=== PATIENT | male | born 1965 | race Two or more races ===

== ENCOUNTER 2017-11-20 09:16 | Emergency (ER) | payer MEDICAID ==
[~2017-11-20] VITALS: Ht 182.9 cm; Wt 68.8 kg
[2017-11-20 09:22] VITALS: BP 178/91
== END 2017-11-20 10:43 | disposition home or self-care (01) ==
LOC: ED 10:20
DX: S70.01XA Contusion of right hip, initial encounter (principal); S70.11XA Contusion of right thigh, initial encounter; E78.5 Hyperlipidemia, unspecified; E11.9 Type 2 diabetes mellitus without complications; I10 Essential (primary) hypertension; F32.9 Major depressive disorder, single episode, unspecified; Z79.899 Other long term (current) drug therapy; W19.XXXA Unspecified fall, initial encounter; Y93.01 Activity, walking, marching and hiking; Y99.8 Other external cause status; Y92.410 Unspecified street and highway as the place of occurrence of the external cause
CPT/HCPCS: 99284

== ENCOUNTER 2017-11-26 07:29 | Emergency (ER) | payer MEDICAID ==
[~2017-11-26] VITALS: Ht 188 cm; Wt 78.0 kg
[2017-11-26 07:34] VITALS: BP 112/67
== END 2017-11-26 08:56 | disposition home or self-care (01) ==
LOC: ED 08:50
DX: L01.01 Non-bullous impetigo (principal); F17.200 Nicotine dependence, unspecified, uncomplicated; E78.5 Hyperlipidemia, unspecified; I10 Essential (primary) hypertension; E11.9 Type 2 diabetes mellitus without complications
CPT/HCPCS: 99283

== ENCOUNTER 2017-12-23 07:00 | Emergency (ER) | payer MEDICAID ==
[~2017-12-23] VITALS: Ht 182.9 cm; Wt 78.0 kg
[2017-12-23 07:59] LABS: ALANINE AMINOTRANSFERASE 35 U/L (12-78); ALBUMIN 3.3 g/dL (3.4-5.0); ANION GAP 8 mmol/L (5-15); CALCIUM 8.5 mg/dL (8.5-10.1); CHLORIDE 104 mmol/L (98-107); CREATININE 0.57 mg/dL (0.7-1.3)
[2017-12-23 08:00] LABS: MEAN CORPUSCULAR HEMOGLOBIN 32.2 pg (27.5-34.5); MEAN CORPUSCULAR HGB CONC 34.1 g/dL (33.2-36.2); MEAN CORPUSCULAR VOLUME 94.2 fL (81-97); MEAN PLATELET VOLUME 8.4 fL (7.4-10.4); PLATELET COUNT 198 x10^3/uL (130-400); RED BLOOD COUNT 4.22 x10^6/uL (4.38-5.82)
[2017-12-23 08:01] LABS: ALKALINE PHOSPHATASE 99 U/L (45-117); BILIRUBIN,TOTAL 0.4 mg/dL (0.2-1.0); TOTAL PROTEIN 8.2 g/dL (6.4-8.2)
[2017-12-23 08:18] LABS: MD YES
[2017-12-23 08:20] LABS: ANISOCYTOSIS 1+; BAND#(MANUAL) 0.92 x10^3/uL; BANDS%(MANUAL) 8 % (0-7); LYMPH#(MANUAL) 0.35 x10^3/uL (1-3.4); LYMPHS% (MANUAL) 3 % (22-44); MONOS#(MANUAL) 0.23 x10^3/uL (0.3-2.7); MONOS% (MANUAL) 2 % (2-9); SEG#(MANUAL) 10.01 x10^3/uL (1.8-6.8); SEGS% (MANUAL) 87 % (42-75)
[2017-12-23 08:21] LABS: <PLATELET ESTIMATE> ADEQUATE; <PLT MORPHOLOGY> NORMAL PLT MORPH
[2017-12-23] MEDS ORDERED: IBUPROFEN 200 MG TABLET ONE (08:59)
[2017-12-23] MEDS ORDERED: ACETAMINOPHEN 500 MG TABLET ONE (08:59)
[2017-12-23] MEDS ORDERED: CEFTRIAXONE PMX 1GM/50ML 50 ML ONE (09:22)
[2017-12-23] MEDS ORDERED: CEFTRIAXONE PMX 1GM/50ML 50 ML IVPB ONE (09:30)
[2017-12-23] MEDS ORDERED: CEFTRIAXONE 1,000 MG in SODIUM CHLORIDE 0.9% 50 ML IVPB ONE (10:00)
[2017-12-23] MEDS ORDERED: SODIUM CHLORIDE 0.9% 1,000ML IVBOLUS ONE (10:00)
[2017-12-23] MEDS ORDERED: AZITHROMYCIN 500 MG in SODIUM CHLORIDE 0.9% 250 ML IVPB ONE (10:30)
[2017-12-23] MEDS ORDERED: SODIUM CHLORIDE FLUSH 10ML SYR IVF ONE (11:00)
[2017-12-23 12:04] VITALS: BP 169/53
== END 2017-12-23 12:54 | disposition home or self-care (01) ==
LOC: ED 07:47
DX: J15.9 Unspecified bacterial pneumonia (principal); R50.81 Fever presenting with conditions classified elsewhere
CPT/HCPCS: 36415; 71046; 80053; 83605; 84145; 85025; 87040; 93005; 96365; 96366; 96368; 99285; J0456; J0696; J7030; J7050

== ENCOUNTER 2018-03-20 04:06 | Emergency (ER) | payer MEDICAID ==
[~2018-03-20] VITALS: Ht 182.9 cm; Wt 75.0 kg
[2018-03-20] MEDS ORDERED: METFORMIN (04:19)
[2018-03-20] MEDS ORDERED: LISINOPRIL (04:19)
[2018-03-20] MEDS ORDERED: METOPROLOL (04:19)
[2018-03-20] MEDS ORDERED: INSULIN PEN (04:19)
[2018-03-20] MEDS ORDERED: ASPI-515 PO (04:19)
--- NOTE | 2018-03-20 04:20 | NUR ---
PT BS 76, CRACKERS AND ORANGE JUICE PROVIDED AND ERMD AWARE. PT RESTING COMFORTABLY ON GURNEY, VSS.
[2018-03-20 05:04] LABS: BASOPHILS # (AUTO) 0.05 x10^3/uL (0-0.1); BASOPHILS % (AUTO) 1 % (0-1); EOSINOPHILS # (AUTO) 0.01 x10^3/uL (0-0.4); EOSINOPHILS % (AUTO) 0 % (1-7); LYMPHOCYTES # (AUTO) 0.86 x10^3/uL (1-3.4); LYMPHOCYTES % (AUTO) 11 % (22-44); MD NO; MEAN CORPUSCULAR HEMOGLOBIN 31.8 pg (27.5-34.5); MEAN CORPUSCULAR HGB CONC 34.2 g/dL (33.2-36.2); MEAN CORPUSCULAR VOLUME 92.8 fL (81-97); MEAN PLATELET VOLUME 9.3 fL (7.4-10.4); MONOCYTES # (AUTO) 0.55 x10^3/uL (0.2-0.8); MONOCYTES % (AUTO) 7 % (2-9); NEUTROPHILS # (AUTO) 6.37 x10^3/uL (1.8-6.8); NEUTROPHILS % (AUTO) 81 % (42-75); PLATELET COUNT 185 x10^3/uL (130-400); RED BLOOD COUNT 4.82 x10^6/uL (4.38-5.82); RED CELL DISTRIBUTION WIDTH 12.5 % (9.4-14.8)
[2018-03-20 05:15] LABS: ALBUMIN 3.6 g/dL (3.4-5.0); ANION GAP 13 mmol/L (5-15); CHLORIDE 104 mmol/L (98-107)
[2018-03-20 05:16] LABS: CREATININE 0.78 mg/dL (0.7-1.3)
[2018-03-20] MEDS ORDERED: POTASSIUM CHLORIDE 20 MEQ TAB.ER.PRT ONE (05:55)
[2018-03-20] MEDS ORDERED: POTASSIUM CHLORIDE 20 MEQ TAB.ER.PRT PO ONE (06:00)
[2018-03-20 06:08] VITALS: BP 139/91
== END 2018-03-20 06:10 | disposition home or self-care (01) ==
LOC: ED 05:38
DX: E11.649 Type 2 diabetes mellitus with hypoglycemia without coma (principal); Z79.4 Long term (current) use of insulin; E87.6 Hypokalemia; E78.5 Hyperlipidemia, unspecified; I10 Essential (primary) hypertension; Z95.1 Presence of aortocoronary bypass graft
CPT/HCPCS: 36415; 80048; 82040; 82962; 85025; 93005; 99284

== ENCOUNTER 2018-03-30 19:55 | Emergency (ER) | payer MEDICAID ==
[~2018-03-30] VITALS: Ht 182.9 cm; Wt 75.0 kg
[~2018-03-30 19:55] MED LIST: ASPI-515 PO; INSULIN PEN; LISINOPRIL; METFORMIN; METOPROLOL
--- NOTE | 2018-03-30 20:30 | NUR ---
PT BETH CORONADO, PT AMBULATED TO ROOM WITH EMS STEADILY. PT IN HOSPITAL GOWN. PT ON VITALS MONITORS. PT CALM AND COOPERATIVE AT THIS TIME. PT STATED HE WAS TRYING TO ORDER FOOD AT [facility] AND DIDN'T FEEL GOOD. CALLED EMS, WHEN FOUND OUT HIS SUGAR WAS HIGH, ASKED TO BE BROUGHT IN. BLOOD SUGAR TAKEN UPON ARRIVAL, PT BLOOD SUGAR 237. PT SEEN BY DANA SMITHILS UP. WILL CONTINUE TO MONITOR.
[2018-03-30 20:46] LABS: BASOPHILS # (AUTO) 0.03 x10^3/uL (0-0.1); BASOPHILS % (AUTO) 1 % (0-1); EOSINOPHILS # (AUTO) 0.07 x10^3/uL (0-0.4); EOSINOPHILS % (AUTO) 2 % (1-7); LYMPHOCYTES # (AUTO) 1.71 x10^3/uL (1-3.4); LYMPHOCYTES % (AUTO) 40 % (22-44); MD NO; MEAN CORPUSCULAR HEMOGLOBIN 31.8 pg (27.5-34.5); MEAN CORPUSCULAR HGB CONC 34.2 g/dL (33.2-36.2); MEAN PLATELET VOLUME 8.7 fL (7.4-10.4); MONOCYTES # (AUTO) 0.32 x10^3/uL (0.2-0.8); MONOCYTES % (AUTO) 7 % (2-9); NEUTROPHILS # (AUTO) 2.14 x10^3/uL (1.8-6.8); NEUTROPHILS % (AUTO) 50 % (42-75); PLATELET COUNT 210 x10^3/uL (130-400); RED BLOOD COUNT 4.62 x10^6/uL (4.38-5.82); RED CELL DISTRIBUTION WIDTH 13.3 % (9.4-14.8)
[2018-03-30 20:58] LABS: ALANINE AMINOTRANSFERASE 27 U/L (12-78); ALBUMIN 3.6 g/dL (3.4-5.0); ANION GAP 12 mmol/L (5-15); CALCIUM 8.4 mg/dL (8.5-10.1); CHLORIDE 109 mmol/L (98-107)
[2018-03-30 21:01] LABS: ALKALINE PHOSPHATASE 97 U/L (45-117); BILIRUBIN,TOTAL 0.2 mg/dL (0.2-1.0); CREATININE 0.72 mg/dL (0.7-1.3); TOTAL PROTEIN 7.8 g/dL (6.4-8.2)
--- NOTE | 2018-03-30 21:07 | NUR ---
PT LABS HAVE RESULTED. PT UP FOR RECHECK. PT RESTING CALMLY IN BED WITH EYES CLOSED. PT GIVEN URINAL TO VOID.
[2018-03-30 22:54] VITALS: BP 125/82
[2018-03-31] MEDS ORDERED: NALT50TA PO (12:15)
[2018-03-31] MEDS ORDERED: LISI40TA PO (12:15)
[2018-03-31] MEDS ORDERED: EMPA1TAB PO (12:15)
[2018-03-31] MEDS ORDERED: SERT100T32 PO (12:15)
[2018-03-31] MEDS ORDERED: GEMF600T8 PO (12:15)
[2018-03-31] MEDS ORDERED: METF1000 PO (12:15)
[2018-03-31] MEDS ORDERED: METO50TA82 PO (12:15)
[2018-03-31] MEDS ORDERED: INSU100V13 SC (12:17)
== END 2018-03-30 22:55 | disposition home or self-care (01) ==
LOC: ED 21:30
DX: F10.129 Alcohol abuse with intoxication, unspecified (principal); E11.65 Type 2 diabetes mellitus with hyperglycemia; E78.00 Pure hypercholesterolemia, unspecified; I10 Essential (primary) hypertension; Y90.9 Presence of alcohol in blood, level not specified
CPT/HCPCS: 36415; 80053; 82962; 85025; 99283

== ENCOUNTER 2018-05-26 07:34 | Emergency (ER) | payer MEDICAID ==
[~2018-05-26] VITALS: Ht 182.9 cm; Wt 77.5 kg
[~2018-05-26 07:34] MED LIST changes: +EMPA1TAB PO; +GEMF600T8 PO; +INSU100V13 SC; +LISI40TA PO; +METF1000 PO; +METO50TA82 PO; +NALT50TA PO; +SERT100T32 PO
--- NOTE | 2018-05-26 08:09 | NUR ---
VEGETABLE FARM MANAGER: PT TO ROOM FROM LOBBY VIA WHEELCHAIR
[2018-05-26] MEDS ORDERED: SERT100T PO (08:26)
[2018-05-26] MEDS ORDERED: KETOROLAC 30 MG/1 ML ONE (08:52)
[2018-05-26] MEDS ORDERED: HYDROmorphone 1 MG/ML, 1ML ONE (08:53)
[2018-05-26] MEDS ORDERED: SODIUM CHLORIDE FLUSH 10ML SYR IVF ONE (09:00)
[2018-05-26] MEDS ORDERED: HYDROmorphone 2 MG/ML, 1ML IVPush PRN (09:00)
[2018-05-26] MEDS ORDERED: KETOROLAC 30 MG/1 ML IVPush ONE (09:00)
[2018-05-26 09:32] LABS: BASOPHILS # (AUTO) 0.01 x10^3/uL (0-0.1); BASOPHILS % (AUTO) 0 % (0-1); EOSINOPHILS # (AUTO) 0.05 x10^3/uL (0-0.4); EOSINOPHILS % (AUTO) 0 % (1-7); LYMPHOCYTES # (AUTO) 0.79 x10^3/uL (1-3.4); LYMPHOCYTES % (AUTO) 6 % (22-44); MD NO; MEAN CORPUSCULAR HEMOGLOBIN 29.8 pg (27.5-34.5); MEAN CORPUSCULAR HGB CONC 34.1 g/dL (33.2-36.2); MEAN CORPUSCULAR VOLUME 87.6 fL (81-97); MEAN PLATELET VOLUME 8.8 fL (7.4-10.4); MONOCYTES % (AUTO) 6 % (2-9); NEUTROPHILS # (AUTO) 12.08 x10^3/uL (1.8-6.8); NEUTROPHILS % (AUTO) 88 % (42-75); PLATELET COUNT 212 x10^3/uL (130-400); RED CELL DISTRIBUTION WIDTH 12.3 % (9.4-14.8)
[2018-05-26 09:41] LABS: ALBUMIN 3.8 g/dL (3.4-5.0); ANION GAP 7 mmol/L (5-15); CALCIUM 9.2 mg/dL (8.5-10.1); CHLORIDE 90 mmol/L (98-107); CREATININE 0.68 mg/dL (0.7-1.3)
[2018-05-26 09:46] LABS: ALANINE AMINOTRANSFERASE 22 U/L (12-78); ALKALINE PHOSPHATASE 108 U/L (45-117); BILIRUBIN,TOTAL 0.8 mg/dL (0.2-1.0); TOTAL PROTEIN 8.4 g/dL (6.4-8.2)
[2018-05-26 09:51] VITALS: BP 146/81
== END 2018-05-26 11:01 | disposition home or self-care (01) ==
LOC: ED 08:55
DX: M54.42 Lumbago with sciatica, left side (principal); J34.0 Abscess, furuncle and carbuncle of nose; E11.65 Type 2 diabetes mellitus with hyperglycemia; I10 Essential (primary) hypertension; F32.9 Major depressive disorder, single episode, unspecified; E78.5 Hyperlipidemia, unspecified; Z87.01 Personal history of pneumonia (recurrent)
CPT/HCPCS: 36415; 72072; 72110; 80053; 85025; 96374; 96375; 99284; J1170; J1885

== ENCOUNTER 2018-05-27 14:05 | Inpatient (IN) | payer MEDICAID ==
[~2018-05-27] VITALS: Ht 182.9 cm; Wt 68.0 kg
[~2018-05-27 14:05] MED LIST changes: +SERT100T PO
[2018-05-27 15:22] LABS: BASOPHILS % (AUTO) 0 % (0-1); EOSINOPHILS # (AUTO) 0.08 x10^3/uL (0-0.4); EOSINOPHILS % (AUTO) 1 % (1-7); LYMPHOCYTES # (AUTO) 1.02 x10^3/uL (1-3.4); LYMPHOCYTES % (AUTO) 7 % (22-44); MD NO; MEAN CORPUSCULAR HEMOGLOBIN 30.5 pg (27.5-34.5); MEAN CORPUSCULAR HGB CONC 34.5 g/dL (33.2-36.2); MEAN CORPUSCULAR VOLUME 88.6 fL (81-97); MEAN PLATELET VOLUME 9.1 fL (7.4-10.4); MONOCYTES # (AUTO) 0.89 x10^3/uL (0.2-0.8); MONOCYTES % (AUTO) 6 % (2-9); NEUTROPHILS # (AUTO) 12.06 x10^3/uL (1.8-6.8); NEUTROPHILS % (AUTO) 86 % (42-75); PLATELET COUNT 215 x10^3/uL (130-400); RED CELL DISTRIBUTION WIDTH 12.3 % (9.4-14.8)
[2018-05-27 15:32] LABS: ALANINE AMINOTRANSFERASE 24 U/L (12-78); ANION GAP 10 mmol/L (5-15); CALCIUM 9.1 mg/dL (8.5-10.1); CHLORIDE 85 mmol/L (98-107); CREATININE 1.33 mg/dL (0.7-1.3)
[2018-05-27 15:34] LABS: ALKALINE PHOSPHATASE 117 U/L (45-117); BILIRUBIN,TOTAL 0.7 mg/dL (0.2-1.0); TOTAL PROTEIN 8.6 g/dL (6.4-8.2)
--- NOTE | 2018-05-27 16:57 | NUR ---
Present via triage for continued lower back as he was unable to fill pain med rx. Reports lumbar pain with radiation to right leg. Reports he has some back issue which you guys looked at yesterday." Motore/sensory intact. But movement cause extreme pain. Denies bowel/bladder abnormality. Afebrile/VSS. Ddes has enlarged/reddened nose. Looks infected. Patient unsure of why. placd on monitor. Infectious lab/med orders noted. Will complete immediately
[2018-05-27] MEDS ORDERED: MORPHINE SULFATE 4 MG/ML, 1ML IVPush PRN (17:00)
[2018-05-27] MEDS ORDERED: SODIUM CHLORIDE 0.9% 1,000ML IVBOLUS ONE (17:00)
[2018-05-27] MEDS ORDERED: AMPICILLIN/SULBACTAM 3 GM in SODIUM CHLORIDE 0.9% 100 ML IV ONE (17:00)
[2018-05-27] MEDS ORDERED: SODIUM CHLORIDE FLUSH 10ML SYR IVF ONE (17:00)
[2018-05-27] MEDS ORDERED: ONDANSETRON 2MG/ML, 2ML IVPush ONE (17:00)
--- NOTE | 2018-05-27 17:08 | NUR ---
lab at bedside obtaining full set of labs including cultures
--- NOTE | 2018-05-27 17:17 | NUR ---
THROUGHPUT TASK RN: PT HAS MEDICAID SILVERSUMMIT INSURANCE. SPOKE W/ MANUEL AT [facility] WHO DECLINED TRANSFER. SPOKE W/ ABBEY FROM [facility] WHO DECLINED TRANSFER.
[2018-05-27] MEDS ORDERED: ONDANSETRON 2MG/ML, 2ML ONE (17:38)
[2018-05-27] MEDS ORDERED: MORPHINE SULFATE 4 MG/ML, 1ML ONE (17:39)
--- NOTE | 2018-05-27 17:40 | NUR ---
Able to ambulate 20 feet to restroom independently. Reports both legs with scaitica now
--- NOTE | 2018-05-27 18:03 | NUR ---
TO CT SCAN
--- NOTE | 2018-05-27 19:10 | NUR ---
PATIENT REPORTS CONTINUED PAIN RELIEF AFTER MORPHINE ADMIN (04/17), DENIES OTHER COMPLAINTS. RESTING IN BED WITH CALL YAN IN HAND. VSS. UPDATED ON ESTIMATED POC ( TO BE ADMITTED SHORTLY)
[2018-05-27 19:25] VITALS: BP 109/64
[2018-05-27] MEDS ORDERED: GLUCAGON 1 MG IM PRN (19:30)
[2018-05-27] MEDS ORDERED: DEXTROSE 50%, 50ML SYRINGE IVPush PRN (19:30)
[2018-05-27] MEDS ORDERED: DEXTROSE 4 GM TAB.CHEW PO PRN (19:30)
[2018-05-27] MEDS ORDERED: hydrALAzine 20 MG/ML, 1ML IVPush PRN (19:30)
[2018-05-27 19:40] LABS: HEMOGLOBIN A1C 7.7 % (4.2-6.3)
[2018-05-27] MEDS: METOPROLOL TARTRATE 50 MG TABLET PO SCH (20:08)
[2018-05-27] MEDS: SODIUM CHLORIDE FLUSH 10ML SYR IVF SCH (20:09)
[2018-05-27] MEDS: SODIUM CHLORIDE 0.9% 1,000 ML IV SCH (20:09)
[2018-05-27 20:30] LABS: AMPHETAMINE SCREEN, URINE Negative (Negative); BARBITURATE SCREEN, URINE Negative (Negative); BENZODIAZEPINE SCREEN, URINE Negative (Negative); CANNABINOID SCREEN, URINE Negative (Negative); COCAINE SCREEN, URINE Negative (Negative); METHADONE SCREEN, URINE Negative (Negative); OPIATE SCREEN, URINE Positive (Negative)
[2018-05-27] MEDS ORDERED: THIAMINE 200 MG in DEXTROSE 5% 50 ML IVPB ONE (20:30)
[2018-05-27] MEDS ORDERED: FOLIC ACID 5 MG/ML IM ONE (20:30)
[2018-05-27] MEDS ORDERED: INSULIN GLARGINE 100 UNITS/ML, PEN SQ-INSULIN SCH (21:00)
[2018-05-27] MEDS ORDERED: FOLIC ACID 1 MG TABLET PO ONE ×2 (21:00→23:30)
[2018-05-27] MEDS: INSULIN LISPRO 100 UNITS/ML, PEN SQ-INSULIN SCH (21:04)
[2018-05-27] MEDS ORDERED: OMNIPAQUE 350 MG/ML, 100ML BOTTLE ONE (22:51)
[2018-05-27] MEDS: MULTIVITAMINS/MINERALS TABLET PO SCH (23:20)
[2018-05-27] MEDS ORDERED: THIAMINE 100MG TABLET PO ONE (23:30)
[2018-05-28] MEDS: AMPICILLIN/SULBACTAM 3 GM in SODIUM CHLORIDE 0.9% 100 ML IV SCH ×4 (00:22→20:36)
[2018-05-28] MEDS: SODIUM CHLORIDE 0.9% 1,000 ML IV SCH ×2 (00:23→14:10)
[2018-05-28 01:30] VITALS: BP 128/72
[2018-05-28 06:43] LABS: BASOPHILS % (AUTO) 0 % (0-1); EOSINOPHILS # (AUTO) 0.07 x10^3/uL (0-0.4); EOSINOPHILS % (AUTO) 1 % (1-7); LYMPHOCYTES # (AUTO) 0.83 x10^3/uL (1-3.4); LYMPHOCYTES % (AUTO) 6 % (22-44); MD NO; MEAN CORPUSCULAR HEMOGLOBIN 30.8 pg (27.5-34.5); MEAN CORPUSCULAR HGB CONC 35.3 g/dL (33.2-36.2); MEAN CORPUSCULAR VOLUME 87.3 fL (81-97); MEAN PLATELET VOLUME 8.8 fL (7.4-10.4); MONOCYTES # (AUTO) 0.96 x10^3/uL (0.2-0.8); MONOCYTES % (AUTO) 7 % (2-9); NEUTROPHILS % (AUTO) 87 % (42-75); PLATELET COUNT 211 x10^3/uL (130-400); RED BLOOD COUNT 4.09 x10^6/uL (4.38-5.82); RED CELL DISTRIBUTION WIDTH 12.4 % (9.4-14.8)
[2018-05-28 06:56] LABS: ANION GAP 8 mmol/L (5-15); CALCIUM 8.2 mg/dL (8.5-10.1); CHLORIDE 95 mmol/L (98-107); CREATININE 0.55 mg/dL (0.7-1.3)
[2018-05-28] MEDS: INSULIN LISPRO 100 UNITS/ML, PEN SQ-INSULIN SCH ×7 (07:00→21:00)
[2018-05-28 07:12] VITALS: BP 129/62
[2018-05-28] MEDS ORDERED: DEXTROSE 50%, 50ML SYRINGE IVPush PRN (08:00)
[2018-05-28] MEDS ORDERED: GLUCAGON 1 MG IM PRN (08:00)
[2018-05-28] MEDS ORDERED: POTASSIUM CHLORIDE 10% 40 MEQ/30 ML UDC PO ONE (08:00)
[2018-05-28] MEDS ORDERED: DEXTROSE 4 GM TAB.CHEW PO PRN (08:00)
[2018-05-28] MEDS: LISINOPRIL 20 MG TABLET PO SCH (09:19)
[2018-05-28] MEDS: ASPIRIN 81 MG TABLET EC PO SCH (09:19)
[2018-05-28] MEDS: MULTIVITAMINS/MINERALS TABLET PO SCH (09:19)
[2018-05-28] MEDS: METOPROLOL TARTRATE 50 MG TABLET PO SCH ×2 (09:20→20:38)
[2018-05-28] MEDS: SODIUM CHLORIDE FLUSH 10ML SYR IVF SCH ×4 (09:20→21:00)
[2018-05-28] MEDS ORDERED: VANCOMYCIN PER PHARMACY MC PRN (10:00)
[2018-05-28] MEDS ORDERED: POTASSIUM CHLORIDE 20 MEQ TAB.ER.PRT ONE (10:27)
[2018-05-28] MEDS ORDERED: PHARMACOKINETIC MONITORING MC PRN (10:30)
[2018-05-28] MEDS ORDERED: PHARMACOKINETIC CONSULTATION MC ONE (10:30)
[2018-05-28] MEDS: VANCOMYCIN 1,400 MG in SODIUM CHLORIDE 0.9% 250 ML IV SCH ×2 (11:49→23:37)
[2018-05-28 15:11] VITALS: BP 127/75
[2018-05-28 20:10] VITALS: BP 136/70
[2018-05-28] MEDS: INSULIN GLARGINE 100 UNITS/ML, PEN SQ-INSULIN SCH (23:37)
[2018-05-29 01:44] VITALS: BP 125/71
[2018-05-29] MEDS: AMPICILLIN/SULBACTAM 3 GM in SODIUM CHLORIDE 0.9% 100 ML IV SCH ×2 (02:09→08:57)
[2018-05-29] MEDS: SODIUM CHLORIDE 0.9% 1,000 ML IV SCH (02:09)
[2018-05-29 05:56] LABS: BASOPHILS # (AUTO) 0.02 x10^3/uL (0-0.1); BASOPHILS % (AUTO) 0 % (0-1); EOSINOPHILS # (AUTO) 0.08 x10^3/uL (0-0.4); EOSINOPHILS % (AUTO) 1 % (1-7); LYMPHOCYTES # (AUTO) 1.23 x10^3/uL (1-3.4); LYMPHOCYTES % (AUTO) 10 % (22-44); MD NO; MEAN CORPUSCULAR HEMOGLOBIN 30.2 pg (27.5-34.5); MEAN CORPUSCULAR VOLUME 86.4 fL (81-97); MEAN PLATELET VOLUME 8.7 fL (7.4-10.4); MONOCYTES % (AUTO) 8 % (2-9); NEUTROPHILS # (AUTO) 9.94 x10^3/uL (1.8-6.8); NEUTROPHILS % (AUTO) 81 % (42-75); PLATELET COUNT 193 x10^3/uL (130-400); RED BLOOD COUNT 3.91 x10^6/uL (4.38-5.82)
[2018-05-29 06:14] LABS: ANION GAP 6 mmol/L (5-15); CALCIUM 7.9 mg/dL (8.5-10.1); CHLORIDE 100 mmol/L (98-107)
[2018-05-29 06:15] LABS: CREATININE 0.36 mg/dL (0.7-1.3)
[2018-05-29] MEDS: INSULIN LISPRO 100 UNITS/ML, PEN SQ-INSULIN SCH ×5 (07:00→21:00)
[2018-05-29] MEDS ORDERED: POTASSIUM CHLORIDE 20 MEQ TAB.ER.PRT PO ONE (07:30)
[2018-05-29 08:21] VITALS: BP 145/81
[2018-05-29] MEDS: MULTIVITAMINS/MINERALS TABLET PO SCH (08:57)
[2018-05-29] MEDS: METOPROLOL TARTRATE 50 MG TABLET PO SCH ×2 (08:58→22:06)
[2018-05-29] MEDS: ASPIRIN 81 MG TABLET EC PO SCH (08:58)
[2018-05-29] MEDS: LISINOPRIL 20 MG TABLET PO SCH (08:58)
[2018-05-29] MEDS: SODIUM CHLORIDE FLUSH 10ML SYR IVF SCH ×4 (09:00→22:07)
[2018-05-29] MEDS ORDERED: MAGNESIUM SULFATE PMX 2GM/50ML 50 ML IV ONE (11:00)
[2018-05-29 12:56] VITALS: BP 128/70
[2018-05-29] MEDS: VANCOMYCIN 1,400 MG in SODIUM CHLORIDE 0.9% 250 ML IV SCH (13:29)
[2018-05-29] MEDS: ENOXAPARIN 40 MG/0.4 ML SQ SCH (17:03)
[2018-05-29] MEDS: CEFAZOLIN 2,000 MG in SODIUM CHLORIDE 0.9% 50 ML IV SCH (17:04)
[2018-05-29] MEDS: POLYETHYLENE GLYCOL 17 GM PACKET PO SCH (17:04)
[2018-05-29 19:10] VITALS: BP 139/86
[2018-05-29] MEDS: INSULIN GLARGINE 100 UNITS/ML, PEN SQ-INSULIN SCH (22:06)
[2018-05-30] MEDS: CEFAZOLIN 2,000 MG in SODIUM CHLORIDE 0.9% 50 ML IV SCH ×3 (00:12→18:21)
[2018-05-30 01:00] LABS: HCT (SEDRATE) 36.2 % (39.2-51.8)
[2018-05-30 01:07] VITALS: BP 146/85
[2018-05-30] MEDS ORDERED: VANCOMYCIN 1,400 MG in SODIUM CHLORIDE 0.9% 250 ML IV SCH (01:30)
[2018-05-30] MEDS: INSULIN LISPRO 100 UNITS/ML, PEN SQ-INSULIN SCH ×4 (07:00→22:09)
[2018-05-30 07:19] VITALS: BP 115/75
[2018-05-30] MEDS: SODIUM CHLORIDE FLUSH 10ML SYR IVF SCH ×4 (09:09→22:09)
[2018-05-30] MEDS: LISINOPRIL 20 MG TABLET PO SCH (09:10)
[2018-05-30] MEDS: MULTIVITAMINS/MINERALS TABLET PO SCH (09:10)
[2018-05-30] MEDS: ASPIRIN 81 MG TABLET EC PO SCH (09:10)
[2018-05-30] MEDS: METOPROLOL TARTRATE 50 MG TABLET PO SCH ×2 (09:10→22:09)
[2018-05-30] MEDS: POLYETHYLENE GLYCOL 17 GM PACKET PO SCH (09:11)
[2018-05-30 12:41] VITALS: BP 116/91
[2018-05-30] MEDS ORDERED: SODIUM CHLORIDE NASAL SPRAY 45ML BOTTLE NAS PRN (13:30)
[2018-05-30] MEDS: ENOXAPARIN 40 MG/0.4 ML SQ SCH (18:21)
[2018-05-30 19:17] VITALS: BP 143/89
[2018-05-30] MEDS: INSULIN GLARGINE 100 UNITS/ML, PEN SQ-INSULIN SCH (22:10)
[2018-05-31 01:17] VITALS: BP 140/86
[2018-05-31] MEDS: CEFAZOLIN 2,000 MG in SODIUM CHLORIDE 0.9% 50 ML IV SCH ×3 (02:04→17:43)
[2018-05-31 07:00] VITALS: BP 150/91
[2018-05-31] MEDS: INSULIN LISPRO 100 UNITS/ML, PEN SQ-INSULIN SCH ×4 (07:00→20:35)
[2018-05-31] MEDS: SODIUM CHLORIDE FLUSH 10ML SYR IVF SCH ×4 (09:00→20:43)
[2018-05-31 10:07] VITALS: BP 134/80
[2018-05-31] MEDS: MULTIVITAMINS/MINERALS TABLET PO SCH (10:08)
[2018-05-31] MEDS: LISINOPRIL 20 MG TABLET PO SCH (10:08)
[2018-05-31] MEDS: METOPROLOL TARTRATE 50 MG TABLET PO SCH ×2 (10:08→20:34)
[2018-05-31] MEDS: ASPIRIN 81 MG TABLET EC PO SCH (10:09)
[2018-05-31] MEDS: POLYETHYLENE GLYCOL 17 GM PACKET PO SCH (10:09)
[2018-05-31 12:25] VITALS: BP 148/88
[2018-05-31 12:30] LABS: MEAN CORPUSCULAR HEMOGLOBIN 30.3 pg (27.5-34.5); MEAN CORPUSCULAR HGB CONC 34.4 g/dL (33.2-36.2); MEAN CORPUSCULAR VOLUME 87.9 fL (81-97); MEAN PLATELET VOLUME 9.2 fL (7.4-10.4); PLATELET COUNT 329 x10^3/uL (130-400); RED BLOOD COUNT 4.62 x10^6/uL (4.38-5.82); RED CELL DISTRIBUTION WIDTH 12.5 % (9.4-14.8)
[2018-05-31 13:04] LABS: BASOPHILS # (AUTO) 0.08 x10^3/uL (0-0.1); BASOPHILS % (AUTO) 1 % (0-1); EOSINOPHILS # (AUTO) 0.16 x10^3/uL (0-0.4); EOSINOPHILS % (AUTO) 1 % (1-7); LYMPHOCYTES % (AUTO) 11 % (22-44); MD SCAN; MONOCYTES # (AUTO) 0.64 x10^3/uL (0.2-0.8); MONOCYTES % (AUTO) 5 % (2-9); NEUTROPHILS # (AUTO) 11.41 x10^3/uL (1.8-6.8); NEUTROPHILS % (AUTO) 83 % (42-75)
[2018-05-31] MEDS: ENOXAPARIN 40 MG/0.4 ML SQ SCH (17:00)
[2018-05-31 18:57] VITALS: BP 134/76
[2018-05-31] MEDS: INSULIN GLARGINE 100 UNITS/ML, PEN SQ-INSULIN SCH (20:36)
[2018-06-01 01:43] VITALS: BP 138/86
[2018-06-01] MEDS: CEFAZOLIN 2,000 MG in SODIUM CHLORIDE 0.9% 50 ML IV SCH ×2 (02:22→07:58)
[2018-06-01] MEDS: INSULIN LISPRO 100 UNITS/ML, PEN SQ-INSULIN SCH ×4 (07:00→21:10)
[2018-06-01] MEDS: SODIUM CHLORIDE FLUSH 10ML SYR IVF SCH ×4 (07:33→21:08)
[2018-06-01 07:35] VITALS: BP 138/89
[2018-06-01] MEDS: METOPROLOL TARTRATE 50 MG TABLET PO SCH ×2 (07:58→21:08)
[2018-06-01] MEDS: LISINOPRIL 20 MG TABLET PO SCH (07:59)
[2018-06-01] MEDS: MULTIVITAMINS/MINERALS TABLET PO SCH (07:59)
[2018-06-01] MEDS: POLYETHYLENE GLYCOL 17 GM PACKET PO SCH (07:59)
[2018-06-01] MEDS: ASPIRIN 81 MG TABLET EC PO SCH (07:59)
[2018-06-01] MEDS: AMPICILLIN/SULBACTAM 3 GM in SODIUM CHLORIDE 0.9% 100 ML IV SCH ×2 (14:55→21:07)
[2018-06-01 15:01] VITALS: BP 147/83
[2018-06-01] MEDS: ENOXAPARIN 40 MG/0.4 ML SQ SCH (16:57)
[2018-06-01 19:30] VITALS: BP 155/89
[2018-06-01] MEDS: INSULIN GLARGINE 100 UNITS/ML, PEN SQ-INSULIN SCH (21:10)
[2018-06-02 03:09] VITALS: BP 125/83
[2018-06-02] MEDS: AMPICILLIN/SULBACTAM 3 GM in SODIUM CHLORIDE 0.9% 100 ML IV SCH ×2 (03:15→07:54)
[2018-06-02 06:22] VITALS: BP 146/92
[2018-06-02] MEDS: INSULIN LISPRO 100 UNITS/ML, PEN SQ-INSULIN SCH ×4 (07:00→20:31)
[2018-06-02] MEDS: POLYETHYLENE GLYCOL 17 GM PACKET PO SCH (07:30)
[2018-06-02] MEDS: MULTIVITAMINS/MINERALS TABLET PO SCH (07:54)
[2018-06-02] MEDS: LISINOPRIL 20 MG TABLET PO SCH (07:55)
[2018-06-02] MEDS: METOPROLOL TARTRATE 50 MG TABLET PO SCH ×2 (07:55→20:31)
[2018-06-02] MEDS: ASPIRIN 81 MG TABLET EC PO SCH (07:55)
[2018-06-02] MEDS: SODIUM CHLORIDE FLUSH 10ML SYR IVF SCH ×4 (07:55→20:32)
[2018-06-02] MEDS: ACETAMINOPHEN 325 MG TABLET PO PRN (12:00)
[2018-06-02 14:34] VITALS: BP 139/86
[2018-06-02] MEDS: AMPICILLIN/SULBACTAM 3 GM in SODIUM CHLORIDE 0.9% 50 ML IV SCH ×2 (15:14→20:31)
[2018-06-02] MEDS: ENOXAPARIN 40 MG/0.4 ML SQ SCH (16:21)
[2018-06-02 18:51] VITALS: BP 135/87
[2018-06-02] MEDS: INSULIN GLARGINE 100 UNITS/ML, PEN SQ-INSULIN SCH (20:31)
[2018-06-03 01:11] VITALS: BP 154/98
[2018-06-03] MEDS: AMPICILLIN/SULBACTAM 3 GM in SODIUM CHLORIDE 0.9% 50 ML IV SCH ×4 (03:37→22:28)
[2018-06-03] MEDS: INSULIN LISPRO 100 UNITS/ML, PEN SQ-INSULIN SCH ×4 (07:00→21:00)
[2018-06-03] MEDS: SODIUM CHLORIDE FLUSH 10ML SYR IVF SCH ×4 (07:09→22:29)
[2018-06-03] MEDS: ASPIRIN 81 MG TABLET EC PO SCH (07:39)
[2018-06-03] MEDS: POLYETHYLENE GLYCOL 17 GM PACKET PO SCH (07:39)
[2018-06-03] MEDS: LISINOPRIL 20 MG TABLET PO SCH (07:40)
[2018-06-03] MEDS: MULTIVITAMINS/MINERALS TABLET PO SCH (07:40)
[2018-06-03 07:56] VITALS: BP 149/98
[2018-06-03] MEDS: METOPROLOL TARTRATE 50 MG TABLET PO SCH ×2 (08:00→22:29)
[2018-06-03] MEDS ORDERED: PROPOFOL 10 MG/ML, 20ML ONE (09:47)
[2018-06-03] MEDS ORDERED: ONDANSETRON 2MG/ML, 2ML ONE (09:47)
[2018-06-03] MEDS: MORPHINE SULFATE 4 MG/ML, 1ML IVPush PRN ×2 (09:48→14:59)
[2018-06-03 13:44] VITALS: BP 130/94
[2018-06-03] MEDS ORDERED: MORPHINE SULFATE 4 MG/ML, 1ML IVPush PRN (14:30)
[2018-06-03] MEDS: ENOXAPARIN 40 MG/0.4 ML SQ SCH (15:57)
[2018-06-03] MEDS ORDERED: FENTANYL PF 100 MCG/2ML ONE ×2 (19:24→20:14)
[2018-06-03] MEDS ORDERED: OXYcodone 5 MG/5 ML ORAL.SOL UDC PO PRN (19:30)
[2018-06-03] MEDS ORDERED: HALOPERIDOL 5 MG/ML IV PRN (19:30)
[2018-06-03] MEDS ORDERED: LABETALOL 5MG/ML, 20ML IV PRN (19:30)
[2018-06-03] MEDS ORDERED: PROCHLORPERAZINE 5 MG/ML, 2ML IV PRN (19:30)
[2018-06-03] MEDS ORDERED: METOPROLOL 1 MG/ML, 5ML IV PRN (19:30)
[2018-06-03] MEDS ORDERED: HYDROmorphone 2 MG/ML, 1ML IVPush PRN (19:30)
[2018-06-03] MEDS ORDERED: DIPHENHYDRAMINE 50 MG/ML, 1ML IVPush PRN (19:30)
[2018-06-03] MEDS ORDERED: PROMETHAZINE 25 MG/ML, 1ML IV PRN (19:30)
[2018-06-03] MEDS ORDERED: FENTANYL PF 100 MCG/2ML IV PRN (19:30)
[2018-06-03] MEDS ORDERED: hydrALAzine 20 MG/ML, 1ML IV PRN (19:30)
[2018-06-03] MEDS ORDERED: OXYcodone 5 MG/5 ML ORAL.SOL UDC ONE ×2 (20:12→20:14)
[2018-06-03 20:43] VITALS: BP 163/93
[2018-06-03] MEDS: INSULIN GLARGINE 100 UNITS/ML, PEN SQ-INSULIN SCH (22:30)
[2018-06-04 01:14] VITALS: BP 152/88
[2018-06-04] MEDS: AMPICILLIN/SULBACTAM 3 GM in SODIUM CHLORIDE 0.9% 50 ML IV SCH ×4 (03:13→20:52)
[2018-06-04 05:15] LABS: CREATININE 0.69 mg/dL (0.7-1.3)
[2018-06-04] MEDS: INSULIN LISPRO 100 UNITS/ML, PEN SQ-INSULIN SCH ×4 (07:00→21:00)
[2018-06-04 07:10] LABS: ALBUMIN 3.2 g/dL (3.4-5.0); ANION GAP 8 mmol/L (5-15); CALCIUM 9.2 mg/dL (8.5-10.1); CHLORIDE 101 mmol/L (98-107); CREATININE 0.75 mg/dL (0.7-1.3)
[2018-06-04 07:38] LABS: BASOPHILS # (AUTO) 0.09 x10^3/uL (0-0.1); BASOPHILS % (AUTO) 1 % (0-1); EOSINOPHILS # (AUTO) 0.13 x10^3/uL (0-0.4); EOSINOPHILS % (AUTO) 1 % (1-7); LYMPHOCYTES # (AUTO) 1.47 x10^3/uL (1-3.4); LYMPHOCYTES % (AUTO) 13 % (22-44); MD NO; MEAN CORPUSCULAR HEMOGLOBIN 29.9 pg (27.5-34.5); MEAN PLATELET VOLUME 8.9 fL (7.4-10.4); MONOCYTES # (AUTO) 0.48 x10^3/uL (0.2-0.8); MONOCYTES % (AUTO) 4 % (2-9); NEUTROPHILS # (AUTO) 9.15 x10^3/uL (1.8-6.8); NEUTROPHILS % (AUTO) 81 % (42-75); PLATELET COUNT 411 x10^3/uL (130-400); RED BLOOD COUNT 4.54 x10^6/uL (4.38-5.82); RED CELL DISTRIBUTION WIDTH 12.5 % (9.4-14.8)
[2018-06-04] MEDS: ASPIRIN 81 MG TABLET EC PO SCH (08:06)
[2018-06-04] MEDS: METOPROLOL TARTRATE 50 MG TABLET PO SCH ×2 (08:06→20:55)
[2018-06-04] MEDS: LISINOPRIL 20 MG TABLET PO SCH (08:07)
[2018-06-04] MEDS: POLYETHYLENE GLYCOL 17 GM PACKET PO SCH (08:07)
[2018-06-04] MEDS: MULTIVITAMINS/MINERALS TABLET PO SCH (08:07)
[2018-06-04] MEDS: SODIUM CHLORIDE FLUSH 10ML SYR IVF SCH ×2 (08:07→20:52)
[2018-06-04 08:42] VITALS: BP 157/81
[2018-06-04 14:33] VITALS: BP 174/84
[2018-06-04] MEDS: ENOXAPARIN 40 MG/0.4 ML SQ SCH (16:26)
[2018-06-04 20:52] VITALS: BP 162/92
[2018-06-04] MEDS: INSULIN GLARGINE 100 UNITS/ML, PEN SQ-INSULIN SCH (21:20)
[2018-06-05 03:45] VITALS: BP 143/84
[2018-06-05] MEDS: AMPICILLIN/SULBACTAM 3 GM in SODIUM CHLORIDE 0.9% 50 ML IV SCH (03:45)
[2018-06-05] MEDS: INSULIN LISPRO 100 UNITS/ML, PEN SQ-INSULIN SCH ×4 (07:00→21:32)
[2018-06-05 08:10] VITALS: BP 154/89
[2018-06-05] MEDS: MULTIVITAMINS/MINERALS TABLET PO SCH (08:14)
[2018-06-05] MEDS: METOPROLOL TARTRATE 50 MG TABLET PO SCH ×2 (08:14→21:31)
[2018-06-05] MEDS: POLYETHYLENE GLYCOL 17 GM PACKET PO SCH (08:14)
[2018-06-05] MEDS: ASPIRIN 81 MG TABLET EC PO SCH (08:14)
[2018-06-05] MEDS: SODIUM CHLORIDE FLUSH 10ML SYR IVF SCH ×2 (08:14→21:31)
[2018-06-05] MEDS: LISINOPRIL 20 MG TABLET PO SCH (08:14)
[2018-06-05] MEDS: CEFAZOLIN 2,000 MG in SODIUM CHLORIDE 0.9% 50 ML IV SCH ×3 (08:58→23:37)
[2018-06-05 13:34] VITALS: BP 144/84
[2018-06-05] MEDS: ENOXAPARIN 40 MG/0.4 ML SQ SCH (16:43)
[2018-06-05 19:35] VITALS: BP 159/80
[2018-06-05] MEDS: INSULIN GLARGINE 100 UNITS/ML, PEN SQ-INSULIN SCH (21:33)
[2018-06-05] MEDS: SERTRALINE 100MG TABLET PO SCH (22:06)
[2018-06-06 02:25] VITALS: BP 117/71
[2018-06-06 05:51] LABS: HCT (SEDRATE) 36.4 % (39.2-51.8)
[2018-06-06 06:45] VITALS: BP 123/81
[2018-06-06] MEDS: INSULIN LISPRO 100 UNITS/ML, PEN SQ-INSULIN SCH ×4 (07:00→21:00)
[2018-06-06] MEDS: CEFAZOLIN 2,000 MG in SODIUM CHLORIDE 0.9% 50 ML IV SCH ×3 (08:32→23:57)
[2018-06-06] MEDS: SODIUM CHLORIDE FLUSH 10ML SYR IVF SCH ×2 (08:32→21:05)
[2018-06-06] MEDS: MULTIVITAMINS/MINERALS TABLET PO SCH (08:34)
[2018-06-06] MEDS: SERTRALINE 100MG TABLET PO SCH (08:35)
[2018-06-06] MEDS: LISINOPRIL 20 MG TABLET PO SCH (08:35)
[2018-06-06] MEDS: METOPROLOL TARTRATE 50 MG TABLET PO SCH ×2 (08:35→21:05)
[2018-06-06] MEDS: POLYETHYLENE GLYCOL 17 GM PACKET PO SCH (08:35)
[2018-06-06] MEDS: ASPIRIN 81 MG TABLET EC PO SCH (08:35)
[2018-06-06 12:40] VITALS: BP 125/77
[2018-06-06] MEDS: ENOXAPARIN 40 MG/0.4 ML SQ SCH (17:12)
[2018-06-06 19:22] VITALS: BP 143/87
[2018-06-06] MEDS: INSULIN GLARGINE 100 UNITS/ML, PEN SQ-INSULIN SCH (21:00)
[2018-06-07 01:07] VITALS: BP 143/84
[2018-06-07] MEDS: INSULIN LISPRO 100 UNITS/ML, PEN SQ-INSULIN SCH ×4 (07:00→20:44)
[2018-06-07 07:25] VITALS: BP 135/78
[2018-06-07] MEDS: CEFAZOLIN 2,000 MG in SODIUM CHLORIDE 0.9% 50 ML IV SCH ×2 (08:11→16:28)
[2018-06-07] MEDS: SODIUM CHLORIDE FLUSH 10ML SYR IVF SCH ×2 (08:12→20:51)
[2018-06-07] MEDS: SERTRALINE 100MG TABLET PO SCH (08:14)
[2018-06-07] MEDS: MULTIVITAMINS/MINERALS TABLET PO SCH (08:15)
[2018-06-07] MEDS: METOPROLOL TARTRATE 50 MG TABLET PO SCH ×2 (08:15→20:53)
[2018-06-07] MEDS: ASPIRIN 81 MG TABLET EC PO SCH (08:15)
[2018-06-07] MEDS: LISINOPRIL 20 MG TABLET PO SCH (08:15)
[2018-06-07] MEDS: POLYETHYLENE GLYCOL 17 GM PACKET PO SCH (08:15)
[2018-06-07 14:35] VITALS: BP 135/80
[2018-06-07] MEDS: ENOXAPARIN 40 MG/0.4 ML SQ SCH (16:30)
[2018-06-07 19:20] VITALS: BP 134/75
[2018-06-07] MEDS: INSULIN GLARGINE 100 UNITS/ML, PEN SQ-INSULIN SCH (20:43)
[2018-06-07] MEDS: ACETAMINOPHEN 325 MG TABLET PO PRN (20:54)
[2018-06-08] MEDS: CEFAZOLIN 2,000 MG in SODIUM CHLORIDE 0.9% 50 ML IV SCH ×3 (00:01→16:40)
[2018-06-08 01:45] VITALS: BP 137/79
[2018-06-08 05:13] LABS: BASOPHILS # (AUTO) 0.04 x10^3/uL (0-0.1); BASOPHILS % (AUTO) 0 % (0-1); EOSINOPHILS # (AUTO) 0.08 x10^3/uL (0-0.4); EOSINOPHILS % (AUTO) 1 % (1-7); LYMPHOCYTES % (AUTO) 15 % (22-44); MD NO; MEAN CORPUSCULAR HEMOGLOBIN 30.2 pg (27.5-34.5); MEAN CORPUSCULAR HGB CONC 34.5 g/dL (33.2-36.2); MEAN CORPUSCULAR VOLUME 87.6 fL (81-97); MEAN PLATELET VOLUME 8.9 fL (7.4-10.4); MONOCYTES # (AUTO) 0.58 x10^3/uL (0.2-0.8); MONOCYTES % (AUTO) 7 % (2-9); NEUTROPHILS # (AUTO) 6.62 x10^3/uL (1.8-6.8); NEUTROPHILS % (AUTO) 77 % (42-75); PLATELET COUNT 341 x10^3/uL (130-400); RED CELL DISTRIBUTION WIDTH 12.6 % (9.4-14.8)
[2018-06-08 05:18] LABS: CHLORIDE 101 mmol/L (98-107)
[2018-06-08 05:25] LABS: ALANINE AMINOTRANSFERASE 14 U/L (12-78); ALKALINE PHOSPHATASE 91 U/L (45-117); ANION GAP 7 mmol/L (5-15); BILIRUBIN,TOTAL 0.5 mg/dL (0.2-1.0); CALCIUM 9.1 mg/dL (8.5-10.1); CREATININE 0.59 mg/dL (0.7-1.3); TOTAL PROTEIN 7.9 g/dL (6.4-8.2)
[2018-06-08 08:29] VITALS: BP 157/84
[2018-06-08] MEDS: SODIUM CHLORIDE FLUSH 10ML SYR IVF SCH ×2 (08:49→21:06)
[2018-06-08] MEDS: ASPIRIN 81 MG TABLET EC PO SCH (08:49)
[2018-06-08] MEDS: POLYETHYLENE GLYCOL 17 GM PACKET PO SCH (08:50)
[2018-06-08] MEDS: METOPROLOL TARTRATE 50 MG TABLET PO SCH ×2 (08:50→21:07)
[2018-06-08] MEDS: LISINOPRIL 20 MG TABLET PO SCH (08:50)
[2018-06-08] MEDS: SERTRALINE 100MG TABLET PO SCH (08:50)
[2018-06-08] MEDS: MULTIVITAMINS/MINERALS TABLET PO SCH (08:50)
[2018-06-08] MEDS: INSULIN LISPRO 100 UNITS/ML, PEN SQ-INSULIN SCH ×4 (08:52→21:00)
[2018-06-08] MEDS: MICONAZOLE CRM 2%, 15GM TP SCH ×2 (09:00→21:07)
[2018-06-08] MEDS ORDERED: FLUCONAZOLE 200 MG TABLET PO SCH (09:00)
[2018-06-08 12:58] VITALS: BP 114/88
[2018-06-08] MEDS: ENOXAPARIN 40 MG/0.4 ML SQ SCH (16:42)
[2018-06-08 18:40] VITALS: BP 164/85
[2018-06-08] MEDS ORDERED: INSULIN GLARGINE 100 UNITS/ML, PEN SQ-INSULIN SCH (21:00)
[2018-06-09] MEDS: CEFAZOLIN 2,000 MG in SODIUM CHLORIDE 0.9% 50 ML IV SCH ×2 (00:17→07:29)
[2018-06-09 00:18] VITALS: BP 99/59
[2018-06-09] MEDS: INSULIN LISPRO 100 UNITS/ML, PEN SQ-INSULIN SCH ×4 (07:00→21:50)
[2018-06-09 07:10] VITALS: BP 134/80
[2018-06-09] MEDS: ACETAMINOPHEN 325 MG TABLET PO PRN ×2 (07:36→16:16)
[2018-06-09] MEDS: LISINOPRIL 20 MG TABLET PO SCH (08:58)
[2018-06-09] MEDS: MULTIVITAMINS/MINERALS TABLET PO SCH (08:58)
[2018-06-09] MEDS: SERTRALINE 100MG TABLET PO SCH (08:59)
[2018-06-09] MEDS: ASPIRIN 81 MG TABLET EC PO SCH (08:59)
[2018-06-09] MEDS: METOPROLOL TARTRATE 50 MG TABLET PO SCH ×2 (09:00→21:48)
[2018-06-09] MEDS: POLYETHYLENE GLYCOL 17 GM PACKET PO SCH (09:00)
[2018-06-09] MEDS: SODIUM CHLORIDE FLUSH 10ML SYR IVF SCH ×2 (09:00→21:48)
[2018-06-09] MEDS: MICONAZOLE CRM 2%, 15GM TP SCH ×2 (11:22→21:52)
[2018-06-09] MEDS ORDERED: DAPTOMYCIN 420 MG in SODIUM CHLORIDE 0.9% 100 ML IVPB SCH (12:30)
[2018-06-09 12:56] VITALS: BP 124/74
[2018-06-09] MEDS: ENOXAPARIN 40 MG/0.4 ML SQ SCH (17:00)
[2018-06-09] MEDS ORDERED: INSULIN GLARGINE 100 UNITS/ML, PEN SQ-INSULIN SCH (21:00)
[2018-06-09 21:28] VITALS: BP 167/91
[2018-06-10 01:14] VITALS: BP 187/94
[2018-06-10] MEDS: INSULIN LISPRO 100 UNITS/ML, PEN SQ-INSULIN SCH ×3 (07:00→16:48)
[2018-06-10 07:22] VITALS: BP 151/81
[2018-06-10 08:55] VITALS: BP 164/96
[2018-06-10] MEDS: SODIUM CHLORIDE FLUSH 10ML SYR IVF SCH (08:58)
[2018-06-10] MEDS: METOPROLOL TARTRATE 50 MG TABLET PO SCH (09:01)
[2018-06-10] MEDS: ASPIRIN 81 MG TABLET EC PO SCH (09:01)
[2018-06-10] MEDS: POLYETHYLENE GLYCOL 17 GM PACKET PO SCH (09:01)
[2018-06-10] MEDS: SERTRALINE 100MG TABLET PO SCH (09:02)
[2018-06-10] MEDS: LISINOPRIL 20 MG TABLET PO SCH (09:02)
[2018-06-10] MEDS: MULTIVITAMINS/MINERALS TABLET PO SCH (09:02)
[2018-06-10] MEDS: MICONAZOLE CRM 2%, 15GM TP SCH (09:03)
[2018-06-10] MEDS: ACETAMINOPHEN 325 MG TABLET PO PRN (10:41)
[2018-06-10 12:30] VITALS: BP 131/73
[2018-06-10] MEDS ORDERED: CEFAZOLIN 2,000 MG in SODIUM CHLORIDE 0.9% 50 ML IV SCH (13:00)
[2018-06-10] MEDS ORDERED: MICO14CR TP (13:25)
[2018-06-10] MEDS ORDERED: ASPI81TA45 PO (13:25)
[2018-06-10] MEDS ORDERED: MULT-484 PO (13:25)
[2018-06-10] MEDS ORDERED: ENOX40SY4 SQ (13:25)
[2018-06-10] MEDS ORDERED: METO50TA82 PO (13:25)
[2018-06-10] MEDS ORDERED: ACET325T14 PO (13:25)
[2018-06-10] MEDS ORDERED: LISI-170 PO (13:25)
[2018-06-10] MEDS ORDERED: CLON0.1T22 PO (13:25)
[2018-06-10] MEDS ORDERED: SERT100T32 PO (13:25)
[2018-06-10] MEDS ORDERED: INSU100I13 SQ-INSULIN (13:25)
[2018-06-10] MEDS ORDERED: GABA-826 PO (13:25)
[2018-06-10] MEDS ORDERED: CEFA1VIA IV (13:52)
[2018-06-10] MEDS ORDERED: GABAPENTIN 100 MG CAPSULE PO SCH (16:00)
[2018-06-10] MEDS: ENOXAPARIN 40 MG/0.4 ML SQ SCH (16:52)
[2018-06-10] MEDS ORDERED: INSULIN GLARGINE 100 UNITS/ML, PEN SQ-INSULIN SCH (21:00)
== END 2018-06-10 17:47 | DRG 853 ==
LOC: ED 17:12 → EDIP 18:22 → 3NE 19:18
PROVIDERS: ADMIT Family Medicine; ATTEND Family Medicine
PROC: 0Y6N0Z9 Detachment at Left Foot, Partial 1st Ray, Open Approach (ICD-10-PCS; principal; 2018-06-03 13:00)
PROC: 02HV33Z Insertion of Infusion Device into Superior Vena Cava, Percutaneous Approach (ICD-10-PCS; 2018-06-07)
PROC: B5181ZA Fluoroscopy of Superior Vena Cava using Low Osmolar Contrast, Guidance (ICD-10-PCS; 2018-06-07)
PROC: B548ZZA Ultrasonography of Superior Vena Cava, Guidance (ICD-10-PCS; 2018-06-07)
DX: A41.9 Sepsis, unspecified organism (principal); N17.0 Acute kidney failure with tubular necrosis; L03.116 Cellulitis of left lower limb; E87.1 Hypo-osmolality and hyponatremia; E46 Unspecified protein-calorie malnutrition; L03.211 Cellulitis of face; M86.172 Other acute osteomyelitis, left ankle and foot; B37.49 Other urogenital candidiasis; E11.69 Type 2 diabetes mellitus with other specified complication; L03.032 Cellulitis of left toe; J34.0 Abscess, furuncle and carbuncle of nose; M54.42 Lumbago with sciatica, left side; E11.65 Type 2 diabetes mellitus with hyperglycemia; F32.9 Major depressive disorder, single episode, unspecified; M25.475 Effusion, left foot; F10.20 Alcohol dependence, uncomplicated; E11.649 Type 2 diabetes mellitus with hypoglycemia without coma; E78.00 Pure hypercholesterolemia, unspecified; E78.5 Hyperlipidemia, unspecified; E87.6 Hypokalemia; F17.210 Nicotine dependence, cigarettes, uncomplicated; G89.29 Other chronic pain; I10 Essential (primary) hypertension; I35.8 Other nonrheumatic aortic valve disorders; N47.2 Paraphimosis; N48.1 Balanitis; Z79.4 Long term (current) use of insulin; Z95.1 Presence of aortocoronary bypass graft; Z59.0 Homelessness; Z68.20 Body mass index [BMI] 20.0-20.9, adult; Z83.3 Family history of diabetes mellitus; Z89.411 Acquired absence of right great toe
CPT/HCPCS: 36415; 36573; 70487; 72148; 80048; 80053; 80069; 80202; 80307; 82550; 82565; 82962; 83036; 83605; 83735; 84145; 84520; 85025; 85651; 86140; 87040; 87070; 87075; 87077; 87147; 87176; 87186; 87205; 93306; 93922; 93970; 96365; 96375; G0378; J0295; J0690; J0878; J1650; J2405; J2704; J3010; J3370; Q9967; C1751; J1815; J3475; J7030; J7050

== ENCOUNTER 2018-08-12 11:11 | Emergency (ER) | payer MEDICAID ==
[~2018-08-12] VITALS: Ht 182.9 cm; Wt 63.5 kg
[~2018-08-12 11:11] MED LIST changes: +ACET325T14 PO; +ASPI81TA45 PO; +CEFA1VIA IV; +CLON0.1T22 PO; +ENOX40SY4 SQ; +GABA-826 PO; +INSU100C5 SQ-INSULIN; +INSU100I13 SQ-INSULIN; +LISI-170 PO; +MICO14CR TP; +MULT-484 PO
[2018-08-12 11:55] LABS: BASOPHILS # (AUTO) 0.01 x10^3/uL (0-0.1); BASOPHILS % (AUTO) 0 % (0-1); EOSINOPHILS # (AUTO) 0.05 x10^3/uL (0-0.4); EOSINOPHILS % (AUTO) 0 % (1-7); LYMPHOCYTES # (AUTO) 1.06 x10^3/uL (1-3.4); LYMPHOCYTES % (AUTO) 9 % (22-44); MD NO; MEAN CORPUSCULAR HEMOGLOBIN 28.5 pg (27.5-34.5); MEAN CORPUSCULAR HGB CONC 33.4 g/dL (33.2-36.2); MEAN CORPUSCULAR VOLUME 85.1 fL (81-97); MEAN PLATELET VOLUME 9.7 fL (7.4-10.4); MONOCYTES # (AUTO) 0.64 x10^3/uL (0.2-0.8); MONOCYTES % (AUTO) 5 % (2-9); NEUTROPHILS # (AUTO) 10.61 x10^3/uL (1.8-6.8); NEUTROPHILS % (AUTO) 86 % (42-75); PLATELET COUNT 228 x10^3/uL (130-400); RED BLOOD COUNT 4.65 x10^6/uL (4.38-5.82); RED CELL DISTRIBUTION WIDTH 13.2 % (9.4-14.8)
--- NOTE | 2018-08-12 12:05 | NUR ---
RADIATION PROTECTION TECHNICIAN: PT WHEELED BACK FROM LOBBY TO ROOM AT THIS TIME. NAD NOTED.
[2018-08-12 12:06] LABS: ALANINE AMINOTRANSFERASE 18 U/L (12-78); ALBUMIN 3.2 g/dL (3.4-5.0); ANION GAP 8 mmol/L (5-15); CALCIUM 9.4 mg/dL (8.5-10.1); CHLORIDE 98 mmol/L (98-107); CREATININE 0.84 mg/dL (0.7-1.3)
[2018-08-12 12:09] LABS: ALKALINE PHOSPHATASE 141 U/L (45-117); BILIRUBIN,TOTAL 0.7 mg/dL (0.2-1.0); TOTAL PROTEIN 7.8 g/dL (6.4-8.2)
--- NOTE | 2018-08-12 12:15 | NUR ---
BIB AMBULANCE FOR "DIARRHEA FOR 4 DAYS AFTER EATING FRIED CHICKEN AT [employer] AND STOMACH PAIN" RECENT ANTIBIOTICS FOR LEFT BIG TOE AMPUATION. VSS FINISHED 2MONTH COURSE OF ABX ON July FOR FOOT INFECTION- APPEARS WELL
--- NOTE | 2018-08-12 12:47 | NUR ---
BEDSIDE REPORT TO SAY MONROY
--- NOTE | 2018-08-12 12:48 | NUR ---
PT BIB FOR C/O " LIQUID STOOL FOR 1 WEEK" PT FROM [facility], STATES HIS "HEALTH HAS BEEN BAD FOR THE PAST HALF A YEAR" PT STATES LBM 2 DAYS AGO, 08/10/18. PT C/O 10/15 ABD PAIN. DENIES N/V, SOB, CP.
--- NOTE | 2018-08-12 12:49 | NUR ---
LATE ENTRY FOR 1238 RECEIVED BEDSIDE REPORT FROM SAY BOWEN.
--- NOTE | 2018-08-12 13:08 | NUR ---
PT TAKEN TO CT
[2018-08-12] MEDS ORDERED: OMNIPAQUE 350 MG/ML, 100ML BOTTLE ONE (13:22)
--- NOTE | 2018-08-12 14:10 | NUR ---
PT RESTING ON GURNEY AT THIS TIME, NO EVIDENCE OF DISTRESS. AWAITING RESULTS OF CT ABD, PT WOULD LIKE WATER AND FOOD. WILL UPDATE MD RESULTS POST. NO OTHER NEEDS AT THIS TIME
[2018-08-12 15:26] VITALS: BP 174/98
--- NOTE | 2018-08-12 15:30 | NUR ---
PT RESTING ON GURNEY AT THIS TIME, NO EVIDENCE OF DISTRESS. VSS. WILL AMBULATE TO ASSESS O2 NEEDS PER MD, ANTICIPATE D/C
[2018-08-12] MEDS ORDERED: CEFTRIAXONE 1,000 MG IM ONE (16:00)
[2018-08-12] MEDS ORDERED: AZITHROMYCIN 500 MG TABLET PO ONE (16:00)
--- NOTE | 2018-08-12 16:34 | NUR ---
DISCHARGE ORDERS RECIEVED, PT TO RECIEVE IM/PO ABX. AWAITING MEDS FROM PHARMACY
[2018-08-12] MEDS ORDERED: AZITHROMYCIN 500 MG TABLET ONE (16:41)
== END 2018-08-12 18:28 | disposition home or self-care (01) ==
LOC: ED 18:22
DX: K52.9 Noninfective gastroenteritis and colitis, unspecified (principal); J15.9 Unspecified bacterial pneumonia; E78.5 Hyperlipidemia, unspecified; E11.9 Type 2 diabetes mellitus without complications; I10 Essential (primary) hypertension; F32.9 Major depressive disorder, single episode, unspecified; Z95.1 Presence of aortocoronary bypass graft; F17.200 Nicotine dependence, unspecified, uncomplicated; Z72.9 Problem related to lifestyle, unspecified
CPT/HCPCS: 36415; 71046; 74177; 80053; 85025; 96372; 99284; J0696; Q9967

== ENCOUNTER 2018-08-18 12:11 | Observation (INO) | payer MEDICAID ==
[~2018-08-18] VITALS: Ht 182.9 cm; Wt 62.5 kg
--- NOTE | 2018-08-18 12:12 | NUR ---
PT BIB [facility], WHEELED TO ROOM 17 AND SLID ONTO ER GURNEY. PT C/O ABDOMINAL PAIN AND NAUSEA. PER [facility], ON SCENE FSBG 490, [facility] FSBG 561 PER REPORT. PT STATES HE IS A TYPE 2 DIABETIC WITHOUT INSULIN FOR 5 DAYS. PT ALSO STATES HE WAS IN THE ED 6 DAYS AGO FOR PNEUMONIA. VSS, PT PROVIDED BLANKET, DRESSED IN GOWN AND ATTACHED TO MONITOR. BEDRAILS X [address], CALL LIGHT AND BELONGINGS WITHIN REACH.
--- NOTE | 2018-08-18 12:28 | NUR ---
REPORT GIVEN TO AJ DEAL.
[2018-08-18] MEDS ORDERED: INSULIN REGULAR 100 UNITS/ML, 3ML VIAL IVPush ONE (12:30)
[2018-08-18] MEDS ORDERED: SODIUM CHLORIDE 0.9% 1,000ML IVBOLUS ONE (12:30)
--- NOTE | 2018-08-18 12:31 | NUR ---
BREAK RN: MD COOK HAS BEEN AT BEDSIDE TO ASSESS PT.
[2018-08-18 12:48] LABS: BASOPHILS # (AUTO) 0.01 x10^3/uL (0-0.1); BASOPHILS % (AUTO) 0 % (0-1); EOSINOPHILS # (AUTO) 0.03 x10^3/uL (0-0.4); EOSINOPHILS % (AUTO) 0 % (1-7); LYMPHOCYTES # (AUTO) 1.07 x10^3/uL (1-3.4); LYMPHOCYTES % (AUTO) 11 % (22-44); MD NO; MEAN CORPUSCULAR HEMOGLOBIN 29.5 pg (27.5-34.5); MEAN CORPUSCULAR HGB CONC 33.5 g/dL (33.2-36.2); MEAN CORPUSCULAR VOLUME 87.9 fL (81-97); MONOCYTES # (AUTO) 0.27 x10^3/uL (0.2-0.8); MONOCYTES % (AUTO) 3 % (2-9); NEUTROPHILS # (AUTO) 8.78 x10^3/uL (1.8-6.8); NEUTROPHILS % (AUTO) 86 % (42-75); PLATELET COUNT 245 x10^3/uL (130-400); RED BLOOD COUNT 4.81 x10^6/uL (4.38-5.82); RED CELL DISTRIBUTION WIDTH 13.5 % (9.4-14.8)
[2018-08-18 12:51] LABS: PH, VENOUS 7.422 pH (7.320-7.420)
[2018-08-18 12:52] LABS: ACETONE, SERUM Large (80mg/dL) mg/dL (Negative)
[2018-08-18 12:57] LABS: CHLORIDE 93 mmol/L (98-107)
[2018-08-18 13:03] LABS: ALANINE AMINOTRANSFERASE 19 U/L (12-78); ALBUMIN 3.5 g/dL (3.4-5.0); ALKALINE PHOSPHATASE 138 U/L (45-117); ANION GAP 10 mmol/L (5-15); BILIRUBIN,TOTAL 0.7 mg/dL (0.2-1.0); CALCIUM 9.2 mg/dL (8.5-10.1); CREATININE 1.02 mg/dL (0.7-1.3); TOTAL PROTEIN 8.4 g/dL (6.4-8.2)
[2018-08-18] MEDS ORDERED: INSULIN LISPRO 100 UNITS/ML, PEN ONE (13:05)
--- NOTE | 2018-08-18 13:17 | NUR ---
INSULIN IVP ADMINISTERED PER MD ORDER. FSBG RECHECK IN 1 HOUR.
--- NOTE | 2018-08-18 13:37 | NUR ---
PT RESTING ON GURNEY. NADN. MORRISON.
--- NOTE | 2018-08-18 14:12 | NUR ---
RECHECK FSBG 278.
--- NOTE | 2018-08-18 14:56 | NUR ---
PT RESTING COMFORTABLY IN [facility]. AAOX4, VSS, ALL NEEDS MET.
--- NOTE | 2018-08-18 15:01 | NUR ---
THROUGHPUT: [facility] ([facility] & [facility] DENIED TRANSFER.
--- NOTE | 2018-08-18 15:42 | NUR ---
PT RESTING COMFORTABLY IN [facility]. AAOX4, VSS, ALL NEEDS MET.
--- NOTE | 2018-08-18 16:13 | NUR ---
REPORT CALLED TO GWENDOLYN DEAL. PT TO TRANSFER TO ROOM WITH ALL BELONGINGS AND CHART.
--- NOTE | 2018-08-18 16:28 | NUR ---
PT LEFT WITH TECH TO ROOM 458 WITH ALL BELONGINGS AND CHART.
[2018-08-18] MEDS ORDERED: ACETAMINOPHEN 325 MG TABLET PO PRN (16:30)
[2018-08-18] MEDS ORDERED: ONDANSETRON ODT 4 MG PO PRN (16:30)
[2018-08-18] MEDS ORDERED: LABETALOL 5MG/ML, 20ML IVPush PRN (16:30)
[2018-08-18] MEDS ORDERED: ENOXAPARIN 40 MG/0.4 ML SQ SCH (16:30)
[2018-08-18] MEDS ORDERED: ENALAPRILAT 1.25 MG/ML, 2ML IVPush PRN (16:30)
[2018-08-18] MEDS ORDERED: POLYETHYLENE GLYCOL 17 GM PACKET PO PRN (16:30)
[2018-08-18] MEDS ORDERED: ONDANSETRON 2MG/ML, 2ML IVPush PRN (16:30)
[2018-08-18] MEDS ORDERED: BISACODYL 10 MG SUPP PR PRN (16:30)
[2018-08-18] MEDS ORDERED: DOCUSATE 100 MG CAPSULE PO PRN (16:30)
[2018-08-18 16:37] VITALS: BP 163/94
[2018-08-18 16:45] VITALS: BP 163/94
[2018-08-18] MEDS ORDERED: GLUCAGON 1 MG IM PRN (17:00)
[2018-08-18] MEDS ORDERED: DEXTROSE 4 GM TAB.CHEW PO PRN (17:00)
[2018-08-18] MEDS ORDERED: DEXTROSE 50%, 50ML SYRINGE IVPush PRN (17:00)
[2018-08-18] MEDS: SODIUM CHLORIDE 0.9% 1,000 ML IV SCH ×2 (17:32→23:36)
[2018-08-18 19:31] VITALS: BP 160/90
[2018-08-18 19:33] LABS: MICROSCOPIC NOT IND
[2018-08-18 19:37] LABS: CULTURE INDICATED? NO
[2018-08-18 20:34] LABS: CLOSTRIDIUM DIFFICILE ANTIGEN NEGATIVE; CLOSTRIDIUM DIFFICILE TOXIN NEGATIVE (Negative)
[2018-08-18] MEDS: SODIUM CHLORIDE FLUSH 10ML SYR IVF SCH (21:00)
[2018-08-18] MEDS: INSULIN LISPRO 100 UNITS/ML, PEN SQ-INSULIN SCH (23:22)
[2018-08-19 01:52] VITALS: BP 146/92
[2018-08-19 01:54] VITALS: BP 145/89
[2018-08-19 05:35] LABS: CHLORIDE 101 mmol/L (98-107)
[2018-08-19 05:40] LABS: BASOPHILS # (AUTO) 0.03 x10^3/uL (0-0.1); BASOPHILS % (AUTO) 0 % (0-1); EOSINOPHILS # (AUTO) 0.21 x10^3/uL (0-0.4); EOSINOPHILS % (AUTO) 3 % (1-7); LYMPHOCYTES # (AUTO) 1.73 x10^3/uL (1-3.4); LYMPHOCYTES % (AUTO) 20 % (22-44); MD NO; MEAN CORPUSCULAR HEMOGLOBIN 28.9 pg (27.5-34.5); MEAN CORPUSCULAR HGB CONC 33.1 g/dL (33.2-36.2); MEAN CORPUSCULAR VOLUME 87.3 fL (81-97); MEAN PLATELET VOLUME 9.7 fL (7.4-10.4); MONOCYTES % (AUTO) 6 % (2-9); NEUTROPHILS # (AUTO) 5.98 x10^3/uL (1.8-6.8); NEUTROPHILS % (AUTO) 71 % (42-75); PLATELET COUNT 237 x10^3/uL (130-400); RED BLOOD COUNT 4.53 x10^6/uL (4.38-5.82); RED CELL DISTRIBUTION WIDTH 13.1 % (9.4-14.8)
[2018-08-19 05:42] LABS: ANION GAP 9 mmol/L (5-15); CALCIUM 8.5 mg/dL (8.5-10.1); CREATININE 0.59 mg/dL (0.7-1.3)
[2018-08-19] MEDS: SODIUM CHLORIDE 0.9% 1,000 ML IV SCH (06:27)
[2018-08-19 07:26] VITALS: BP 130/81
[2018-08-19] MEDS ORDERED: MAGNESIUM SULFATE PMX 2GM/50ML 50 ML IV ONE (08:00)
[2018-08-19] MEDS ORDERED: SODIUM PHOSPHATE 20 MMOL in SODIUM CHLORIDE 0.9% 500 ML IV ONE (08:00)
[2018-08-19] MEDS ORDERED: INSU100C5 SQ-INSULIN (08:26)
[2018-08-19] MEDS ORDERED: METO50TA82 PO (08:26)
[2018-08-19] MEDS ORDERED: METF1000 PO (08:26)
[2018-08-19] MEDS ORDERED: LISI-170 PO (08:26)
[2018-08-19] MEDS ORDERED: SERT100T PO (08:26)
[2018-08-19] MEDS ORDERED: MAALOX/HYOSCYAMINE/LIDOCAINE 45 ML BTL PO ONE (08:30)
[2018-08-19] MEDS: INSULIN LISPRO 100 UNITS/ML, PEN SQ-INSULIN SCH ×2 (08:43→11:55)
[2018-08-19] MEDS ORDERED: metFORMIN 500 MG TABLET PO SCH (09:00)
[2018-08-19] MEDS ORDERED: ASPIRIN 81 MG TABLET EC PO SCH (09:00)
[2018-08-19] MEDS: SODIUM CHLORIDE FLUSH 10ML SYR IVF SCH (09:00)
[2018-08-19] MEDS ORDERED: LISINOPRIL 20 MG TABLET PO SCH (09:00)
[2018-08-19] MEDS ORDERED: METOPROLOL TARTRATE 50 MG TABLET PO SCH (09:00)
[2018-08-19] MEDS ORDERED: SERTRALINE 100MG TABLET PO SCH (09:00)
[2018-08-19 09:47] LABS: ACETONE, SERUM Large (80mg/dL) mg/dL (Negative)
[2018-08-19 12:57] VITALS: BP 137/94
[2018-08-19 17:27] LABS: HEMOGLOBIN A1C 12.2 % (4.2-6.3)
== END 2018-08-19 16:00 | disposition home or self-care (01) ==
LOC: ED 12:37 → EDIP 15:10 → INTOOBSV 15:10 → 4NOR 16:28 → DCLOUNGE 08-19 15:52
PROVIDERS: ADMIT Internal Medicine; ATTEND Internal Medicine
DX: E11.65 Type 2 diabetes mellitus with hyperglycemia (principal); E11.10 Type 2 diabetes mellitus with ketoacidosis without coma; E78.5 Hyperlipidemia, unspecified; F17.210 Nicotine dependence, cigarettes, uncomplicated; G89.29 Other chronic pain; F31.9 Bipolar disorder, unspecified; E78.00 Pure hypercholesterolemia, unspecified; K52.9 Noninfective gastroenteritis and colitis, unspecified; D72.829 Elevated white blood cell count, unspecified
CPT/HCPCS: 36415; 71045; 80048; 80053; 81003; 82010; 82803; 82962; 83036; 83735; 84100; 85025; 87324; 93005; 96361; 96365; 96366; 96368; 96372; 99284; G0378; J1650; J1815; J3475; J7030; J7040; G0008

== ENCOUNTER 2019-01-03 09:54 | Inpatient (IN) | payer MEDICAID ==
[~2019-01-03] VITALS: Ht 185.4 cm; Wt 69.0 kg
--- NOTE | 2019-01-03 10:10 | NUR ---
Received report from [facility]. All questions answered. Pt waiting in [facility]. Per [facility], "He has an infected blister on his toe."
[2019-01-03] MEDS ORDERED: LISI-170 PO (10:40)
[2019-01-03] MEDS ORDERED: GABA300C10 PO (10:40)
[2019-01-03] MEDS ORDERED: INSU100V13 SQ-INSULIN (10:40)
[2019-01-03] MEDS ORDERED: EMPA1TAB PO (10:40)
[2019-01-03] MEDS ORDERED: AMPICILLIN/SULBACTAM 3 GM in SODIUM CHLORIDE 0.9% 100 ML IV ONE (11:00)
[2019-01-03 11:20] LABS: BASOPHILS % (AUTO) 0 % (0-1); EOSINOPHILS # (AUTO) 0.01 x10^3/uL (0-0.4); EOSINOPHILS % (AUTO) 0 % (1-7); LYMPHOCYTES # (AUTO) 0.77 x10^3/uL (1-3.4); LYMPHOCYTES % (AUTO) 6 % (22-44); MD NO; MEAN CORPUSCULAR HEMOGLOBIN 30.4 pg (27.5-34.5); MEAN CORPUSCULAR HGB CONC 33.3 g/dL (33.2-36.2); MEAN CORPUSCULAR VOLUME 91.4 fL (81-97); MEAN PLATELET VOLUME 9.6 fL (7.4-10.4); MONOCYTES # (AUTO) 0.94 x10^3/uL (0.2-0.8); MONOCYTES % (AUTO) 7 % (2-9); NEUTROPHILS % (AUTO) 87 % (42-75); PLATELET COUNT 180 x10^3/uL (130-400); RED BLOOD COUNT 5.14 x10^6/uL (4.38-5.82); RED CELL DISTRIBUTION WIDTH 12.9 % (9.4-14.8)
[2019-01-03] MEDS ORDERED: SODIUM CHLORIDE FLUSH 10ML SYR IVF ONE (11:30)
[2019-01-03 11:32] LABS: ALBUMIN 3.9 g/dL (3.4-5.0); ANION GAP 5 mmol/L (5-15); CALCIUM 9.1 mg/dL (8.5-10.1); CHLORIDE 97 mmol/L (98-107); CREATININE 0.86 mg/dL (0.7-1.3)
--- NOTE | 2019-01-03 12:13 | NUR ---
REPORT RECIEVED FROM SAY AGUILAR. ASSUMED CARE OF PT. PT CURRENTLY DOZING ON MARA, AWAKENS EASILY TO NAME BEING CALLED. PT AO X 4. SKIN PWD. RESP EVEN AND UNLABORED. PT AWARE THAT WE ARE WAITING FOR ADMISSION. PT ON CONT BP AND O2 MONITORS. CALL LIGHT WITHIN REACH. WILL CONT TO MONITOR PT.
--- NOTE | 2019-01-03 13:22 | NUR ---
Pt resting on gurney connected to NIBP cuff and continous pulse ox monitor sleeping. Pt has even chest rise and fall. NADN. No needs expressed. Call light within reach.
--- NOTE | 2019-01-03 13:27 | NUR ---
Received report from SAY Nguyen. All questions answered. Assuming care of pt at this time.
--- NOTE | 2019-01-03 14:31 | NUR ---
Provided report to Elham Lizarraga RN. All questions answered. Pt ready to transfer from ED to floor.
--- NOTE | 2019-01-03 15:06 | NUR ---
Pt transfered to floor from ED and left with all personal belongings.
[2019-01-03 15:28] VITALS: BP 120/75
[2019-01-03] MEDS ORDERED: BISACODYL 10 MG SUPP PR PRN (15:30)
[2019-01-03] MEDS ORDERED: GLUCAGON 1 MG IM PRN (15:30)
[2019-01-03] MEDS ORDERED: ACETAMINOPHEN 325 MG TABLET PO PRN (15:30)
[2019-01-03] MEDS ORDERED: morphine SULFATE 10 MG/ML, 1ML IVPush PRN (15:30)
[2019-01-03] MEDS ORDERED: DOCUSATE 100 MG CAPSULE PO PRN (15:30)
[2019-01-03] MEDS ORDERED: VANCOMYCIN PER PHARMACY MC PRN (15:30)
[2019-01-03] MEDS ORDERED: AMPICILLIN/SULBACTAM 1,500 MG in SODIUM CHLORIDE 0.9% 50 ML IV SCH (15:30)
[2019-01-03] MEDS ORDERED: DEXTROSE 4 GM TAB.CHEW PO PRN (15:30)
[2019-01-03] MEDS ORDERED: DEXTROSE 50%, 50ML SYRINGE IVPush PRN (15:30)
[2019-01-03] MEDS ORDERED: ONDANSETRON 2MG/ML, 2ML IVPush PRN (15:30)
[2019-01-03] MEDS ORDERED: POLYETHYLENE GLYCOL 17 GM PACKET PO PRN (15:30)
[2019-01-03] MEDS: HEPARIN 5,000 UNITS/ML, 1ML SQ SCH ×2 (15:30→23:53)
[2019-01-03] MEDS: SODIUM CHLORIDE 0.9% 1,000 ML IV SCH (15:35)
[2019-01-03] MEDS ORDERED: PHARMACOKINETIC CONSULTATION MC ONE (16:00)
[2019-01-03] MEDS: INSULIN LISPRO 100 UNITS/ML, PEN SQ-INSULIN SCH ×2 (16:00→22:14)
[2019-01-03] MEDS ORDERED: PHARMACOKINETIC MONITORING MC PRN (16:00)
[2019-01-03] MEDS: GABAPENTIN 400 MG CAPSULE PO SCH ×2 (16:55→21:51)
[2019-01-03] MEDS: AMPICILLIN/SULBACTAM 1,500 MG in SODIUM CHLORIDE 0.9% 100 ML IV SCH ×2 (16:55→23:54)
[2019-01-03 17:28] LABS: HCT (SEDRATE) 44.3 % (39.2-51.8)
[2019-01-03 19:33] VITALS: BP 117/81
[2019-01-03] MEDS: VANCOMYCIN 1,300 MG in SODIUM CHLORIDE 0.9% 250 ML IV SCH (19:42)
[2019-01-03] MEDS: METOPROLOL TARTRATE 50 MG TABLET PO SCH (21:52)
[2019-01-03] MEDS: SODIUM CHLORIDE FLUSH 10ML SYR IVF SCH (21:54)
[2019-01-04 01:45] VITALS: BP 123/81
[2019-01-04 05:34] LABS: BASOPHILS # (AUTO) 0.01 x10^3/uL (0-0.1); BASOPHILS % (AUTO) 0 % (0-1); EOSINOPHILS # (AUTO) 0.08 x10^3/uL (0-0.4); EOSINOPHILS % (AUTO) 1 % (1-7); LYMPHOCYTES # (AUTO) 0.91 x10^3/uL (1-3.4); LYMPHOCYTES % (AUTO) 10 % (22-44); MD NO; MEAN CORPUSCULAR HEMOGLOBIN 30.7 pg (27.5-34.5); MEAN CORPUSCULAR HGB CONC 33.6 g/dL (33.2-36.2); MEAN CORPUSCULAR VOLUME 91.4 fL (81-97); MEAN PLATELET VOLUME 9.8 fL (7.4-10.4); MONOCYTES # (AUTO) 0.65 x10^3/uL (0.2-0.8); MONOCYTES % (AUTO) 8 % (2-9); NEUTROPHILS # (AUTO) 7.08 x10^3/uL (1.8-6.8); NEUTROPHILS % (AUTO) 81 % (42-75); PLATELET COUNT 173 x10^3/uL (130-400); RED BLOOD COUNT 4.64 x10^6/uL (4.38-5.82)
[2019-01-04 05:35] LABS: CALCIUM 8.3 mg/dL (8.5-10.1); CHLORIDE 106 mmol/L (98-107)
[2019-01-04 05:49] LABS: ALANINE AMINOTRANSFERASE 13 U/L (12-78); ALBUMIN 3.1 g/dL (3.4-5.0); ALKALINE PHOSPHATASE 117 U/L (45-117); ANION GAP 5 mmol/L (5-15); BILIRUBIN,TOTAL 0.6 mg/dL (0.2-1.0); CREATININE 0.56 mg/dL (0.7-1.3); TOTAL PROTEIN 6.9 g/dL (6.4-8.2)
[2019-01-04] MEDS: SODIUM CHLORIDE 0.9% 1,000 ML IV SCH (06:39)
[2019-01-04 07:07] VITALS: BP 127/89
[2019-01-04] MEDS: HEPARIN 5,000 UNITS/ML, 1ML SQ SCH ×3 (07:30→23:33)
[2019-01-04] MEDS: INSULIN LISPRO 100 UNITS/ML, PEN SQ-INSULIN SCH ×4 (07:44→21:03)
[2019-01-04] MEDS: AMPICILLIN/SULBACTAM 1,500 MG in SODIUM CHLORIDE 0.9% 100 ML IV SCH (07:54)
[2019-01-04] MEDS: SODIUM CHLORIDE FLUSH 10ML SYR IVF SCH ×2 (09:23→21:02)
[2019-01-04] MEDS: MULTIVITAMINS/MINERALS TABLET PO SCH (09:24)
[2019-01-04] MEDS: METOPROLOL TARTRATE 50 MG TABLET PO SCH ×2 (09:24→21:03)
[2019-01-04] MEDS: GABAPENTIN 400 MG CAPSULE PO SCH ×3 (09:24→21:03)
[2019-01-04] MEDS: LISINOPRIL 20 MG TABLET PO SCH (09:24)
[2019-01-04] MEDS: ASPIRIN 81 MG TABLET EC PO SCH (09:24)
[2019-01-04] MEDS: SERTRALINE 100MG TABLET PO SCH (09:32)
[2019-01-04] MEDS: HYDROcodone/APAP 5/325 TABLET PO PRN ×2 (09:32→15:33)
[2019-01-04] MEDS ORDERED: INSULIN GLARGINE 100 UNITS/ML, PEN SQ-INSULIN SCH (09:38)
[2019-01-04] MEDS: VANCOMYCIN 1,300 MG in SODIUM CHLORIDE 0.9% 250 ML IV SCH (12:31)
[2019-01-04 13:17] VITALS: BP 132/83
[2019-01-04] MEDS: AMPICILLIN/SULBACTAM 1,500 MG in SODIUM CHLORIDE 0.9% 50 ML IV SCH ×2 (15:51→22:06)
[2019-01-04 19:02] VITALS: BP 121/76
[2019-01-04 22:00] LABS: HEMOGLOBIN A1C 10.2 % (4.2-6.3)
[2019-01-05 01:12] VITALS: BP 131/78
[2019-01-05] MEDS: AMPICILLIN/SULBACTAM 1,500 MG in SODIUM CHLORIDE 0.9% 50 ML IV SCH ×4 (03:58→21:45)
[2019-01-05 05:39] LABS: ANION GAP 5 mmol/L (5-15); CALCIUM 8.3 mg/dL (8.5-10.1); CHLORIDE 107 mmol/L (98-107); CREATININE 0.52 mg/dL (0.7-1.3)
[2019-01-05 05:46] LABS: BASOPHILS # (AUTO) 0.04 x10^3/uL (0-0.1); BASOPHILS % (AUTO) 1 % (0-1); EOSINOPHILS # (AUTO) 0.19 x10^3/uL (0-0.4); EOSINOPHILS % (AUTO) 3 % (1-7); LYMPHOCYTES # (AUTO) 1.24 x10^3/uL (1-3.4); LYMPHOCYTES % (AUTO) 19 % (22-44); MD NO; MEAN CORPUSCULAR HEMOGLOBIN 30.5 pg (27.5-34.5); MEAN CORPUSCULAR HGB CONC 33.4 g/dL (33.2-36.2); MEAN CORPUSCULAR VOLUME 91.2 fL (81-97); MEAN PLATELET VOLUME 9.6 fL (7.4-10.4); MONOCYTES # (AUTO) 0.53 x10^3/uL (0.2-0.8); MONOCYTES % (AUTO) 8 % (2-9); NEUTROPHILS # (AUTO) 4.59 x10^3/uL (1.8-6.8); NEUTROPHILS % (AUTO) 70 % (42-75); PLATELET COUNT 170 x10^3/uL (130-400); RED BLOOD COUNT 4.44 x10^6/uL (4.38-5.82); RED CELL DISTRIBUTION WIDTH 12.7 % (9.4-14.8)
[2019-01-05] MEDS: VANCOMYCIN 1,300 MG in SODIUM CHLORIDE 0.9% 250 ML IV SCH (06:03)
[2019-01-05] MEDS: HEPARIN 5,000 UNITS/ML, 1ML SQ SCH ×3 (07:30→23:36)
[2019-01-05] MEDS: SODIUM CHLORIDE FLUSH 10ML SYR IVF SCH ×2 (07:38→21:45)
[2019-01-05] MEDS: INSULIN LISPRO 100 UNITS/ML, PEN SQ-INSULIN SCH ×4 (08:14→21:00)
[2019-01-05] MEDS: ASPIRIN 81 MG TABLET EC PO SCH (08:16)
[2019-01-05] MEDS: SERTRALINE 100MG TABLET PO SCH (08:16)
[2019-01-05] MEDS: INSULIN GLARGINE 100 UNITS/ML, PEN SQ-INSULIN SCH (08:16)
[2019-01-05] MEDS: GABAPENTIN 400 MG CAPSULE PO SCH ×3 (08:16→21:45)
[2019-01-05] MEDS: METOPROLOL TARTRATE 50 MG TABLET PO SCH ×2 (08:18→21:45)
[2019-01-05] MEDS: LISINOPRIL 20 MG TABLET PO SCH (08:18)
[2019-01-05] MEDS: MULTIVITAMINS/MINERALS TABLET PO SCH (08:18)
[2019-01-05 09:28] VITALS: BP 127/77
[2019-01-05 14:40] VITALS: BP 137/81
[2019-01-05] MEDS: HYDROcodone/APAP 5/325 TABLET PO PRN (15:53)
[2019-01-05 20:27] VITALS: BP 126/78
[2019-01-06] MEDS: VANCOMYCIN 1,300 MG in SODIUM CHLORIDE 0.9% 250 ML IV SCH ×2 (00:06→18:25)
[2019-01-06 01:25] VITALS: BP 146/86
[2019-01-06] MEDS: AMPICILLIN/SULBACTAM 1,500 MG in SODIUM CHLORIDE 0.9% 50 ML IV SCH ×4 (03:59→23:23)
[2019-01-06] MEDS: HEPARIN 5,000 UNITS/ML, 1ML SQ SCH ×3 (07:30→23:26)
[2019-01-06] MEDS: HYDROcodone/APAP 5/325 TABLET PO PRN (07:50)
[2019-01-06] MEDS: INSULIN LISPRO 100 UNITS/ML, PEN SQ-INSULIN SCH ×4 (07:50→20:24)
[2019-01-06 08:28] VITALS: BP 144/85
[2019-01-06] MEDS: SODIUM CHLORIDE FLUSH 10ML SYR IVF SCH ×2 (09:00→20:45)
[2019-01-06] MEDS: GABAPENTIN 400 MG CAPSULE PO SCH ×3 (09:16→20:45)
[2019-01-06] MEDS: SERTRALINE 100MG TABLET PO SCH (09:16)
[2019-01-06] MEDS: MULTIVITAMINS/MINERALS TABLET PO SCH (09:16)
[2019-01-06] MEDS: LISINOPRIL 20 MG TABLET PO SCH (09:17)
[2019-01-06] MEDS: ASPIRIN 81 MG TABLET EC PO SCH (09:17)
[2019-01-06] MEDS: METOPROLOL TARTRATE 50 MG TABLET PO SCH ×2 (09:17→20:45)
[2019-01-06] MEDS: INSULIN GLARGINE 100 UNITS/ML, PEN SQ-INSULIN SCH (10:20)
[2019-01-06 14:21] VITALS: BP 122/77
[2019-01-06 19:15] VITALS: BP 133/77
[2019-01-07 02:18] VITALS: BP 128/73
[2019-01-07] MEDS: AMPICILLIN/SULBACTAM 1,500 MG in SODIUM CHLORIDE 0.9% 50 ML IV SCH ×4 (05:03→22:43)
[2019-01-07] MEDS: VANCOMYCIN 1,300 MG in SODIUM CHLORIDE 0.9% 250 ML IV SCH ×2 (05:55→18:39)
[2019-01-07 07:17] VITALS: BP 162/80
[2019-01-07] MEDS: LISINOPRIL 20 MG TABLET PO SCH (07:48)
[2019-01-07] MEDS: SERTRALINE 100MG TABLET PO SCH (07:48)
[2019-01-07] MEDS: MULTIVITAMINS/MINERALS TABLET PO SCH (07:48)
[2019-01-07] MEDS: METOPROLOL TARTRATE 50 MG TABLET PO SCH ×2 (07:48→19:52)
[2019-01-07] MEDS: ASPIRIN 81 MG TABLET EC PO SCH (07:48)
[2019-01-07] MEDS: SODIUM CHLORIDE FLUSH 10ML SYR IVF SCH ×2 (07:48→19:53)
[2019-01-07] MEDS: GABAPENTIN 400 MG CAPSULE PO SCH ×3 (07:48→19:52)
[2019-01-07] MEDS: HEPARIN 5,000 UNITS/ML, 1ML SQ SCH ×3 (07:48→22:48)
[2019-01-07] MEDS: INSULIN LISPRO 100 UNITS/ML, PEN SQ-INSULIN SCH ×4 (07:49→19:53)
[2019-01-07] MEDS: INSULIN GLARGINE 100 UNITS/ML, PEN SQ-INSULIN SCH (07:50)
[2019-01-07 21:36] VITALS: BP 166/90
[2019-01-07 21:40] VITALS: BP 158/90
[2019-01-08 02:42] VITALS: BP 146/79
[2019-01-08] MEDS: AMPICILLIN/SULBACTAM 1,500 MG in SODIUM CHLORIDE 0.9% 50 ML IV SCH ×4 (04:46→22:41)
[2019-01-08 05:54] LABS: BASOPHILS # (AUTO) 0.05 x10^3/uL (0-0.1); BASOPHILS % (AUTO) 1 % (0-1); EOSINOPHILS # (AUTO) 0.22 x10^3/uL (0-0.4); EOSINOPHILS % (AUTO) 4 % (1-7); LYMPHOCYTES # (AUTO) 1.13 x10^3/uL (1-3.4); LYMPHOCYTES % (AUTO) 19 % (22-44); MD NO; MEAN CORPUSCULAR HEMOGLOBIN 30.5 pg (27.5-34.5); MEAN CORPUSCULAR VOLUME 92.6 fL (81-97); MONOCYTES # (AUTO) 0.45 x10^3/uL (0.2-0.8); MONOCYTES % (AUTO) 8 % (2-9); NEUTROPHILS # (AUTO) 4.05 x10^3/uL (1.8-6.8); NEUTROPHILS % (AUTO) 69 % (42-75); PLATELET COUNT 201 x10^3/uL (130-400); RED BLOOD COUNT 4.71 x10^6/uL (4.38-5.82); RED CELL DISTRIBUTION WIDTH 12.9 % (9.4-14.8)
[2019-01-08 06:07] LABS: CHLORIDE 104 mmol/L (98-107)
[2019-01-08 06:13] LABS: ANION GAP 7 mmol/L (5-15); CALCIUM 8.4 mg/dL (8.5-10.1); CREATININE 0.69 mg/dL (0.7-1.3)
[2019-01-08] MEDS: VANCOMYCIN 1,300 MG in SODIUM CHLORIDE 0.9% 250 ML IV SCH (06:18)
[2019-01-08] MEDS: HYDROcodone/APAP 5/325 TABLET PO PRN (06:27)
[2019-01-08] MEDS: GABAPENTIN 400 MG CAPSULE PO SCH ×3 (07:49→20:16)
[2019-01-08] MEDS: MULTIVITAMINS/MINERALS TABLET PO SCH (07:49)
[2019-01-08] MEDS: LISINOPRIL 20 MG TABLET PO SCH (07:49)
[2019-01-08] MEDS: METOPROLOL TARTRATE 50 MG TABLET PO SCH ×2 (07:49→20:16)
[2019-01-08] MEDS: SERTRALINE 100MG TABLET PO SCH (07:50)
[2019-01-08] MEDS: SODIUM CHLORIDE FLUSH 10ML SYR IVF SCH ×2 (07:50→20:16)
[2019-01-08] MEDS: ASPIRIN 81 MG TABLET EC PO SCH (07:50)
[2019-01-08] MEDS: INSULIN LISPRO 100 UNITS/ML, PEN SQ-INSULIN SCH ×4 (07:51→20:16)
[2019-01-08] MEDS: HEPARIN 5,000 UNITS/ML, 1ML SQ SCH ×3 (07:53→23:06)
[2019-01-08] MEDS: INSULIN GLARGINE 100 UNITS/ML, PEN SQ-INSULIN SCH (07:55)
[2019-01-08 08:17] VITALS: BP 141/87
[2019-01-08] MEDS ORDERED: KETOROLAC 30 MG/1 ML IVPush PRN (10:30)
[2019-01-08 12:40] VITALS: BP 127/78
[2019-01-08 18:52] VITALS: BP 125/76
[2019-01-09 00:50] VITALS: BP 122/60
[2019-01-09] MEDS: AMPICILLIN/SULBACTAM 1,500 MG in SODIUM CHLORIDE 0.9% 50 ML IV SCH ×4 (05:03→23:11)
[2019-01-09] MEDS: INSULIN LISPRO 100 UNITS/ML, PEN SQ-INSULIN SCH ×4 (07:43→21:29)
[2019-01-09] MEDS: INSULIN GLARGINE 100 UNITS/ML, PEN SQ-INSULIN SCH (07:43)
[2019-01-09] MEDS: ASPIRIN 81 MG TABLET EC PO SCH (07:43)
[2019-01-09] MEDS: MULTIVITAMINS/MINERALS TABLET PO SCH (07:43)
[2019-01-09] MEDS: LISINOPRIL 20 MG TABLET PO SCH (07:44)
[2019-01-09] MEDS: METOPROLOL TARTRATE 50 MG TABLET PO SCH ×2 (07:44→21:20)
[2019-01-09] MEDS: SERTRALINE 100MG TABLET PO SCH (07:44)
[2019-01-09] MEDS: HEPARIN 5,000 UNITS/ML, 1ML SQ SCH ×3 (07:44→23:11)
[2019-01-09] MEDS: GABAPENTIN 400 MG CAPSULE PO SCH ×3 (07:44→21:20)
[2019-01-09] MEDS: SODIUM CHLORIDE FLUSH 10ML SYR IVF SCH ×2 (07:45→21:00)
[2019-01-09 09:07] VITALS: BP 125/77
[2019-01-09] MEDS: HYDROcodone/APAP 5/325 TABLET PO PRN (12:16)
[2019-01-09 14:19] VITALS: BP 122/74
[2019-01-09 19:17] VITALS: BP 126/74
[2019-01-10 01:55] VITALS: BP 124/74
[2019-01-10] MEDS: AMPICILLIN/SULBACTAM 1,500 MG in SODIUM CHLORIDE 0.9% 50 ML IV SCH ×4 (04:57→23:32)
[2019-01-10 06:06] LABS: BASOPHILS # (AUTO) 0.03 x10^3/uL (0-0.1); BASOPHILS % (AUTO) 1 % (0-1); EOSINOPHILS # (AUTO) 0.18 x10^3/uL (0-0.4); EOSINOPHILS % (AUTO) 3 % (1-7); LYMPHOCYTES # (AUTO) 1.34 x10^3/uL (1-3.4); LYMPHOCYTES % (AUTO) 23 % (22-44); MD NO; MEAN CORPUSCULAR HEMOGLOBIN 30.5 pg (27.5-34.5); MEAN CORPUSCULAR VOLUME 92.6 fL (81-97); MONOCYTES # (AUTO) 0.49 x10^3/uL (0.2-0.8); MONOCYTES % (AUTO) 9 % (2-9); NEUTROPHILS # (AUTO) 3.69 x10^3/uL (1.8-6.8); NEUTROPHILS % (AUTO) 64 % (42-75); PLATELET COUNT 188 x10^3/uL (130-400); RED BLOOD COUNT 4.66 x10^6/uL (4.38-5.82); RED CELL DISTRIBUTION WIDTH 13.1 % (9.4-14.8)
[2019-01-10 06:19] LABS: CHLORIDE 107 mmol/L (98-107)
[2019-01-10 06:25] LABS: ANION GAP 5 mmol/L (5-15); CALCIUM 8.7 mg/dL (8.5-10.1); CREATININE 0.57 mg/dL (0.7-1.3)
[2019-01-10] MEDS: HEPARIN 5,000 UNITS/ML, 1ML SQ SCH ×3 (07:30→23:32)
[2019-01-10] MEDS: ASPIRIN 81 MG TABLET EC PO SCH (08:21)
[2019-01-10] MEDS: MULTIVITAMINS/MINERALS TABLET PO SCH (08:21)
[2019-01-10] MEDS: SERTRALINE 100MG TABLET PO SCH (08:21)
[2019-01-10] MEDS: GABAPENTIN 400 MG CAPSULE PO SCH ×3 (08:21→21:25)
[2019-01-10] MEDS: METOPROLOL TARTRATE 50 MG TABLET PO SCH ×2 (08:21→21:25)
[2019-01-10] MEDS: SODIUM CHLORIDE FLUSH 10ML SYR IVF SCH ×2 (08:21→21:25)
[2019-01-10] MEDS: LISINOPRIL 20 MG TABLET PO SCH (08:22)
[2019-01-10] MEDS: INSULIN LISPRO 100 UNITS/ML, PEN SQ-INSULIN SCH ×4 (08:22→21:24)
[2019-01-10] MEDS: INSULIN GLARGINE 100 UNITS/ML, PEN SQ-INSULIN SCH (08:23)
[2019-01-10] MEDS: HYDROcodone/APAP 5/325 TABLET PO PRN (08:29)
[2019-01-10 09:44] VITALS: BP 110/65
[2019-01-10] MEDS ORDERED: NEOSPORIN OINT, 15GM ONE (12:32)
[2019-01-10 19:51] VITALS: BP 155/79
[2019-01-11 01:03] VITALS: BP 103/64
[2019-01-11] MEDS: AMPICILLIN/SULBACTAM 1,500 MG in SODIUM CHLORIDE 0.9% 50 ML IV SCH ×3 (05:12→18:02)
[2019-01-11] MEDS: INSULIN LISPRO 100 UNITS/ML, PEN SQ-INSULIN SCH ×4 (07:56→20:19)
[2019-01-11] MEDS: INSULIN GLARGINE 100 UNITS/ML, PEN SQ-INSULIN SCH (07:56)
[2019-01-11] MEDS: LISINOPRIL 20 MG TABLET PO SCH ×2 (07:58→08:19)
[2019-01-11] MEDS: SERTRALINE 100MG TABLET PO SCH (07:58)
[2019-01-11] MEDS: ASPIRIN 81 MG TABLET EC PO SCH (07:58)
[2019-01-11] MEDS: MULTIVITAMINS/MINERALS TABLET PO SCH (07:58)
[2019-01-11] MEDS: METOPROLOL TARTRATE 50 MG TABLET PO SCH ×3 (07:59→20:19)
[2019-01-11] MEDS: SODIUM CHLORIDE FLUSH 10ML SYR IVF SCH ×2 (07:59→20:19)
[2019-01-11] MEDS: HEPARIN 5,000 UNITS/ML, 1ML SQ SCH ×2 (08:00→16:29)
[2019-01-11] MEDS: GABAPENTIN 400 MG CAPSULE PO SCH ×3 (08:04→20:18)
[2019-01-11 08:17] VITALS: BP 99/60
[2019-01-11 19:39] VITALS: BP 127/74
[2019-01-11] MEDS: HYDROcodone/APAP 5/325 TABLET PO PRN (20:21)
[2019-01-12] MEDS: AMPICILLIN/SULBACTAM 1,500 MG in SODIUM CHLORIDE 0.9% 50 ML IV SCH ×4 (00:18→18:10)
[2019-01-12 00:20] VITALS: BP 129/78
[2019-01-12] MEDS: SERTRALINE 100MG TABLET PO SCH (07:38)
[2019-01-12] MEDS: GABAPENTIN 400 MG CAPSULE PO SCH ×3 (07:38→19:45)
[2019-01-12] MEDS: ASPIRIN 81 MG TABLET EC PO SCH (07:38)
[2019-01-12] MEDS: LISINOPRIL 20 MG TABLET PO SCH (07:39)
[2019-01-12] MEDS: MULTIVITAMINS/MINERALS TABLET PO SCH (07:39)
[2019-01-12] MEDS: METOPROLOL TARTRATE 50 MG TABLET PO SCH ×3 (07:39→19:45)
[2019-01-12] MEDS: INSULIN LISPRO 100 UNITS/ML, PEN SQ-INSULIN SCH ×4 (07:40→19:45)
[2019-01-12 07:42] VITALS: BP 150/80
[2019-01-12] MEDS: HEPARIN 5,000 UNITS/ML, 1ML SQ SCH ×3 (07:47→14:58)
[2019-01-12] MEDS: SODIUM CHLORIDE FLUSH 10ML SYR IVF SCH ×2 (07:48→19:45)
[2019-01-12] MEDS ORDERED: INSULIN GLARGINE 100 UNITS/ML, PEN SQ-INSULIN SCH (09:00)
[2019-01-12] MEDS: HYDROcodone/APAP 5/325 TABLET PO PRN (12:27)
[2019-01-12 13:26] VITALS: BP 148/78
[2019-01-12 19:01] VITALS: BP 148/80
[2019-01-13] MEDS: AMPICILLIN/SULBACTAM 1,500 MG in SODIUM CHLORIDE 0.9% 50 ML IV SCH ×4 (00:40→17:31)
[2019-01-13 01:31] VITALS: BP 139/72
[2019-01-13 06:32] LABS: BASOPHILS # (AUTO) 0.04 x10^3/uL (0-0.1); BASOPHILS % (AUTO) 1 % (0-1); EOSINOPHILS # (AUTO) 0.15 x10^3/uL (0-0.4); EOSINOPHILS % (AUTO) 2 % (1-7); LYMPHOCYTES # (AUTO) 1.22 x10^3/uL (1-3.4); LYMPHOCYTES % (AUTO) 19 % (22-44); MD NO; MEAN CORPUSCULAR HEMOGLOBIN 30.5 pg (27.5-34.5); MEAN CORPUSCULAR HGB CONC 33.4 g/dL (33.2-36.2); MEAN CORPUSCULAR VOLUME 91.2 fL (81-97); MEAN PLATELET VOLUME 9.9 fL (7.4-10.4); MONOCYTES % (AUTO) 11 % (2-9); NEUTROPHILS # (AUTO) 4.38 x10^3/uL (1.8-6.8); NEUTROPHILS % (AUTO) 67 % (42-75); PLATELET COUNT 188 x10^3/uL (130-400); RED BLOOD COUNT 4.73 x10^6/uL (4.38-5.82); RED CELL DISTRIBUTION WIDTH 13.2 % (9.4-14.8)
[2019-01-13 06:41] LABS: CALCIUM 9.2 mg/dL (8.5-10.1); CHLORIDE 105 mmol/L (98-107)
[2019-01-13 06:44] LABS: ANION GAP 5 mmol/L (5-15); CREATININE 0.66 mg/dL (0.7-1.3)
[2019-01-13 07:10] VITALS: BP 146/92
[2019-01-13] MEDS: GABAPENTIN 400 MG CAPSULE PO SCH ×3 (07:35→20:59)
[2019-01-13] MEDS: ASPIRIN 81 MG TABLET EC PO SCH (07:35)
[2019-01-13] MEDS: LISINOPRIL 20 MG TABLET PO SCH (07:36)
[2019-01-13] MEDS: MULTIVITAMINS/MINERALS TABLET PO SCH (07:36)
[2019-01-13] MEDS: HYDROcodone/APAP 5/325 TABLET PO PRN ×2 (07:36→12:15)
[2019-01-13] MEDS: SERTRALINE 100MG TABLET PO SCH (07:37)
[2019-01-13] MEDS: SODIUM CHLORIDE FLUSH 10ML SYR IVF SCH ×2 (07:37→21:00)
[2019-01-13] MEDS: HEPARIN 5,000 UNITS/ML, 1ML SQ SCH ×3 (07:38→16:00)
[2019-01-13] MEDS: METOPROLOL TARTRATE 50 MG TABLET PO SCH ×2 (07:38→20:59)
[2019-01-13] MEDS ORDERED: INSULIN GLARGINE 100 UNITS/ML, PEN SQ-INSULIN SCH (09:00)
[2019-01-13] MEDS: INSULIN GLARGINE 100 UNITS/ML, PEN SQ-INSULIN SCH (09:00)
[2019-01-13] MEDS: INSULIN LISPRO 100 UNITS/ML, PEN SQ-INSULIN SCH ×4 (09:20→21:00)
[2019-01-13 12:48] VITALS: BP 126/80
[2019-01-13 19:13] VITALS: BP 125/71
[2019-01-14 00:56] VITALS: BP 122/82
[2019-01-14] MEDS: AMPICILLIN/SULBACTAM 1,500 MG in SODIUM CHLORIDE 0.9% 50 ML IV SCH ×2 (00:57→06:15)
[2019-01-14] MEDS: INSULIN LISPRO 100 UNITS/ML, PEN SQ-INSULIN SCH ×2 (07:00→11:10)
[2019-01-14 07:01] VITALS: BP 152/83
[2019-01-14] MEDS: HEPARIN 5,000 UNITS/ML, 1ML SQ SCH ×2 (08:00)
[2019-01-14] MEDS: ASPIRIN 81 MG TABLET EC PO SCH (08:14)
[2019-01-14] MEDS: SODIUM CHLORIDE FLUSH 10ML SYR IVF SCH (08:14)
[2019-01-14] MEDS: LISINOPRIL 20 MG TABLET PO SCH (08:15)
[2019-01-14] MEDS: METOPROLOL TARTRATE 50 MG TABLET PO SCH (08:15)
[2019-01-14] MEDS: MULTIVITAMINS/MINERALS TABLET PO SCH (08:15)
[2019-01-14] MEDS: GABAPENTIN 400 MG CAPSULE PO SCH (08:15)
[2019-01-14] MEDS: SERTRALINE 100MG TABLET PO SCH (08:15)
[2019-01-14] MEDS: INSULIN GLARGINE 100 UNITS/ML, PEN SQ-INSULIN SCH (08:16)
[2019-01-14] MEDS: HYDROcodone/APAP 5/325 TABLET PO PRN (11:09)
[2019-01-14] MEDS ORDERED: AMPICILLIN/SULBACTAM 3 GM in SODIUM CHLORIDE 0.9% 100 ML IV SCH (11:30)
[2019-01-14] MEDS ORDERED: AMPI3VIA IV (12:43)
[2019-01-14 13:01] VITALS: BP 164/81
[2019-01-14 13:43] VITALS: BP 138/64
== END 2019-01-14 14:57 | DRG 638 ==
LOC: ED 11:18 → EDIP 14:12 → 3N 15:00
PROVIDERS: ADMIT Hospitalist; ATTEND Internal Medicine
DX: E11.628 Type 2 diabetes mellitus with other skin complications (principal); L03.116 Cellulitis of left lower limb; E87.1 Hypo-osmolality and hyponatremia; L03.211 Cellulitis of face; Z16.29 Resistance to other single specified antibiotic; M86.8X7 Other osteomyelitis, ankle and foot; S92.502A Displaced unspecified fracture of left lesser toe(s), initial encounter for closed fracture; E11.621 Type 2 diabetes mellitus with foot ulcer; E11.65 Type 2 diabetes mellitus with hyperglycemia; E78.00 Pure hypercholesterolemia, unspecified; E78.5 Hyperlipidemia, unspecified; F17.210 Nicotine dependence, cigarettes, uncomplicated; F32.9 Major depressive disorder, single episode, unspecified; G89.29 Other chronic pain; M54.9 Dorsalgia, unspecified; I10 Essential (primary) hypertension; L97.529 Non-pressure chronic ulcer of other part of left foot with unspecified severity; S90.425A Blister (nonthermal), left lesser toe(s), initial encounter; Z59.0 Homelessness; Z79.4 Long term (current) use of insulin; Z82.49 Family history of ischemic heart disease and other diseases of the circulatory system; Z83.3 Family history of diabetes mellitus; Z86.14 Personal history of Methicillin resistant Staphylococcus aureus infection; Z89.411 Acquired absence of right great toe; Z89.412 Acquired absence of left great toe; Z91.14 Patient's other noncompliance with medication regimen; Z95.1 Presence of aortocoronary bypass graft; X58.XXXA Exposure to other specified factors, initial encounter; Y93.89 Activity, other specified; Y92.89 Other specified places as the place of occurrence of the external cause; Y99.8 Other external cause status; E11.69 Type 2 diabetes mellitus with other specified complication
CPT/HCPCS: 36415; 80048; 80053; 80202; 82040; 82962; 83036; 83735; 84100; 84443; 85025; 85651; 86140; 87040; 87070; 87077; 87147; 87186; 87205; 93922; G0378; J0295; J1644; J3370; J1815; J7030; J7050

== ENCOUNTER 2019-03-05 22:48 | Emergency (ER) | payer MEDICAID ==
[~2019-03-05] VITALS: Ht 182.9 cm; Wt 75.0 kg
[~2019-03-05 22:48] MED LIST changes: +AMPI3VIA IV; +GABA300C10 PO; +INSU100V13 SQ-INSULIN
--- NOTE | 2019-03-05 23:06 | NUR ---
Patient BIB [facility] for L foot pain. Patient states he had an infection on his foot a few months ago and he was admitted to [facility] with IV antibiotics. Today he is having pain and states it gets worse when it's cold outside. Patient is in NAD. He is wearing a boot on the left foot. No deformities noted. CMS intact. Skin PWD. Patient denies fever, N/V.
[2019-03-05 23:12] LABS: BASOPHILS # (AUTO) 0.04 x10^3/uL (0-0.1); BASOPHILS % (AUTO) 1 % (0-1); EOSINOPHILS # (AUTO) 0.13 x10^3/uL (0-0.4); EOSINOPHILS % (AUTO) 2 % (1-7); LYMPHOCYTES # (AUTO) 2.14 x10^3/uL (1-3.4); LYMPHOCYTES % (AUTO) 34 % (22-44); MD NO; MEAN CORPUSCULAR HGB CONC 33.4 g/dL (33.2-36.2); MEAN CORPUSCULAR VOLUME 86.8 fL (81-97); MEAN PLATELET VOLUME 9.6 fL (7.4-10.4); MONOCYTES # (AUTO) 0.58 x10^3/uL (0.2-0.8); MONOCYTES % (AUTO) 9 % (2-9); NEUTROPHILS # (AUTO) 3.35 x10^3/uL (1.8-6.8); NEUTROPHILS % (AUTO) 54 % (42-75); PLATELET COUNT 190 x10^3/uL (130-400); RED BLOOD COUNT 4.46 x10^6/uL (4.38-5.82); RED CELL DISTRIBUTION WIDTH 13.5 % (9.4-14.8)
[2019-03-05 23:23] LABS: ALANINE AMINOTRANSFERASE 23 U/L (12-78); ALBUMIN 3.8 g/dL (3.4-5.0); ANION GAP 11 mmol/L (5-15); CALCIUM 8.6 mg/dL (8.5-10.1); CHLORIDE 99 mmol/L (98-107); CREATININE 0.84 mg/dL (0.7-1.3)
[2019-03-05 23:25] LABS: ALKALINE PHOSPHATASE 140 U/L (45-117); BILIRUBIN,TOTAL 0.6 mg/dL (0.2-1.0)
[2019-03-05] MEDS ORDERED: INSULIN LISPRO 100 UNIT/ML, 3ML VIAL SQ-INSULIN STA (23:41)
[2019-03-05] MEDS ORDERED: INSULIN LISPRO SINGLE DOSE, ER SQ-INSULIN ONE (23:57)
[2019-03-06 00:08] VITALS: BP 104/78
--- NOTE | 2019-03-06 00:15 | NUR ---
[facility] given discharge instructions and they have confirmed that they understand the instructions. Patient states he has nowhere to go and the [facility] is full. Advised patient we would give him a taxi voucher which can take him to a [facility] overflow. Patient agreed. Patient ambulatory with steady gait. Belongings with patient.
== END 2019-03-06 00:17 | disposition home or self-care (01) ==
LOC: ED 23:00
DX: M79.672 Pain in left foot (principal); E11.40 Type 2 diabetes mellitus with diabetic neuropathy, unspecified; E78.00 Pure hypercholesterolemia, unspecified; I10 Essential (primary) hypertension
CPT/HCPCS: 36415; 80053; 82962; 85025; 96372; 99284

== ENCOUNTER 2019-09-25 14:58 | Emergency (ER) | payer MEDICAID ==
[~2019-09-25] VITALS: Ht 182.9 cm; Wt 83.9 kg
[2019-09-25 15:16] VITALS: BP 161/83
--- NOTE | 2019-09-25 15:34 | NUR ---
Pt to room from lobby.
--- NOTE | 2019-09-25 15:46 | NUR ---
TASK RN: PT AMBULATED STEADILY TO ROOM FROM TRIAGE. PT REPORTS R THUMB PAIN/SWELLING X TWO WEEKS, CONTINUED DESPITE RX'D CLINDAMYCIN AND CEPHALIXIN. PT ALSO REPORTS NOTICING R SECOND AND THIRD TOE PAIN/SWELLING/DISCOLORATION YESTERDAY. HX OF DM2 RESULTING IN DM NEUROPATHY AND R GREAT TOE AMPUTATION. REPORTS COMPLIANCE WITH DM MEDICATIONS. DENIES FEVER/WOUND DRAINAGE.
[2019-09-25] MEDS ORDERED: HYDROcodone/APAP 5/325 TABLET PO ONE (16:30)
[2019-09-25] MEDS ORDERED: HYDROcodone/APAP 5/325 TABLET ONE (16:35)
--- NOTE | 2019-09-25 16:44 | NUR ---
LAB AT BEDSIDE. PT DENIES ANY NEEDS OR CONCERNS AT THIS TIME. CALL LIGHT IN REACH.
[2019-09-25 16:55] LABS: BASOPHILS # (AUTO) 0.03 x10^3/uL (0-0.1); BASOPHILS % (AUTO) 1 % (0-1); EOSINOPHILS # (AUTO) 0.12 x10^3/uL (0-0.4); EOSINOPHILS % (AUTO) 2 % (1-7); LYMPHOCYTES % (AUTO) 19 % (22-44); MD NO; MEAN CORPUSCULAR HEMOGLOBIN 32.2 pg (27.5-34.5); MEAN CORPUSCULAR HGB CONC 33.4 g/dL (33.2-36.2); MEAN CORPUSCULAR VOLUME 96.6 fL (81-97); MEAN PLATELET VOLUME 9.1 fL (7.4-10.4); MONOCYTES # (AUTO) 0.55 x10^3/uL (0.2-0.8); MONOCYTES % (AUTO) 9 % (2-9); NEUTROPHILS # (AUTO) 4.05 x10^3/uL (1.8-6.8); NEUTROPHILS % (AUTO) 69 % (42-75); PLATELET COUNT 183 x10^3/uL (130-400); RED BLOOD COUNT 4.36 x10^6/uL (4.38-5.82); RED CELL DISTRIBUTION WIDTH 14.2 % (9.4-14.8)
[2019-09-25 17:02] LABS: ANION GAP 6 mmol/L (5-15); CALCIUM 8.9 mg/dL (8.5-10.1); CHLORIDE 106 mmol/L (98-107); CREATININE 0.94 mg/dL (0.7-1.3)
[2019-09-25] MEDS ORDERED: NEOSPORIN OINT. PKT 1 PACKET ONE (17:48)
== END 2019-09-25 18:35 | disposition home or self-care (01) ==
LOC: ED 17:02
DX: E11.40 Type 2 diabetes mellitus with diabetic neuropathy, unspecified (principal); L89.892 Pressure ulcer of other site, stage 2; M79.642 Pain in left hand; M79.672 Pain in left foot; F17.210 Nicotine dependence, cigarettes, uncomplicated; I10 Essential (primary) hypertension
CPT/HCPCS: 36415; 80048; 85025; 99284